=== PATIENT | female | born 1960 | race Caucasian/White ===

== ENCOUNTER → 2020-07-07 10:00 | Outpatient (BNVA) | payer MEDICARE, MEDICAID, SELFPAY | PROVIDERS: PCP Internal Medicine; Visit Provider Student in an Organized Health Care Education/Training Program | DX: Z76.89 Persons encountering health services in other specified circumstances (principal) | CPT/HCPCS: Q3014 ==

== ENCOUNTER → 2020-09-06 12:51 | Outpatient (BNVA) | payer MEDICARE, MEDICAID, SELFPAY | PROVIDERS: PCP Internal Medicine; Visit Provider Internal Medicine Gastroenterology | CPT/HCPCS: Q3014 ==

== ENCOUNTER 2022-05-30 16:29 | Outpatient (REF) | payer MEDICARE, MEDICAID, SELFPAY ==
--- NOTE | ~2022-05-30 | XR_ITS ---
EXAMINATION: XR RIBS, LEFT CLINICAL INFORMATION: Contusion COMPARISON: Previous chest and rib x-ray July 2019 TECHNIQUE: 3 views of the left ribs and one view of the chest were obtained. FINDINGS: The cardiac and mediastinal contours are stable. The there is biapical pleural thickening that is stable. There is minimal subsegmental atelectasis at the lung bases. The lungs are otherwise clear. No pleural effusion or pneumothorax. There are multiple old left anterior rib fractures. There is a left anterior 10th rib fracture that appears acute. Old T12 vertebral body compression fracture and vertebroplasty change unchanged. Old T6 and T7 vertebral body compression fractures unchanged. XR/XR ribs LT min 3V w CXR1V IMPRESSION: Acute left anterior 10th rib fracture. Multiple old left anterior rib fractures. No evidence for acute the chest.
== END 2022-05-30 16:30 | disposition home or self-care (01) ==
LOC: HO.HMGCX 16:29
PROVIDERS: PCP Internal Medicine; Visit Provider Internal Medicine
DX: S20.219A Contusion of unspecified front wall of thorax, initial encounter (principal); X58.XXXA Exposure to other specified factors, initial encounter; Y93.9 Activity, unspecified; Y92.9 Unspecified place or not applicable; Y99.9 Unspecified external cause status
CPT/HCPCS: 71101

== ENCOUNTER 2022-08-16 13:22 | Outpatient (AMB) | payer MEDICARE, MEDICAID, SELFPAY ==
--- NOTE | 2022-08-16 13:36 | MHC.PC.OV ---
Vital Signs 08/16/22 13:37 Height 5 ft 8 in Weight 155 lb BMI 23.6 BP 122/80 Blood Pressure Location Lt brachial Position Sitting Pulse 95 Pulse Source Pulse Oximeter Pulse Oximetry (%) 94 Oxygen Delivery Method Room Air Intake Visit Reasons: Painful Lumps on Arms Intake Note: Pt is here today c/o lumps on bilateral arms [id number] Allergies codeine [CODEINE] Allergy (Intermediate, Verified 02/01/24 08:54) HIVES, rash Sulfa (Sulfonamide Antibiotics) Allergy (Intermediate, Verified 02/01/24 08:54) RASH, anaphylaxis, anaphylaxis tramadol [Ultram] Allergy (Intermediate, Verified 02/01/24 08:54) trouble breathing Medication List - Last Reconciled 08/16/22 by Maki Foreman MD albuterol sulfate 90 mcg/actuation 2 puffs inhalation Q6H PRN amlodipine 5 mg PO QAM [id number]-lfwozdsjwdogw-dqqz 50-300-40 mg (Fioricet) 1 cap PO ONCE PRN 4 days calcium carbonate-vitamin D3 600 mg-10 mcg (400 unit) 2 tabs PO DAILY carisoprodol 350 mg PO PRN; take 1 tab po in am and 1/2 tablet po in pm clonazepam 1 mg PO BID duloxetine 60 mg PO DAILY fluticasone propionate 50 mcg/actuation 1 spray intranasal QAM meclizine 25 mg PO DAILY PRN metoprolol succinate ER 50 mg PO DAILY omeprazole 40 mg PO DAILY quetiapine 200 mg PO BEDTIME ropinirole 0.5 mg PO BEDTIME 30 days Tobacco use date assessed: 08/16/22 HPI Painful Lumps on Arms HPI Details 63-year-old lady here today complaining of appearance of lumps in both arms present now for the last 2 years, no history of trauma. She had a DEXA scan from December 2018 showing severe osteoporosis. She has been on Fosamax previously, unable to tolerate medication, seen by rheumatology in 2019 and prescribed Forteo. Patient however did not take it , as patient convinced herself she has Paget's disease despite repeated conversations with her stating that prior workup did not reveal any evidence of Paget's. She had a bone scan done in 2014 with no evidence of Paget's disease and her alkaline phosphatase levels have been normal since 2014. She ordered a repeat aCMP and alkaline phosphatase, and she was advised thattient that if her alk-phos is normal on these labs, she will need to start Forteo immediately as she is at high risk for fracture which can decrease both quality and quantity of her life span. Patient however has not followed up with her since. Ordered another bone density scan, to be done together with her screening mammogram. [facility] Medical History (Updated 02/01/24 @ 09:20 by Maki Foreman MD) Cigarette smoker motivated to quit Peripheral vascular disease Pain and swelling of lower extremity Hx of TIA (transient ischemic attack) and stroke Headache Dizziness of unknown cause Restless leg syndrome Distal radius fracture, left Elbow fracture, right Lung nodule seen on imaging study Impaired fasting glucose Osteoporosis Generalized anxiety disorder Primary insomnia Multiple rib fractures Lymphocytic colitis Tubular adenoma of colon Gastritis History of SIADH Hx of compression fracture of spine History of pelvic fracture Hepatitis C History of herpes genitalis Fibromyalgia Surgical History H/O esophagogastroduodenoscopy History of colonoscopy History of hysterectomy Ectopic Family History Father HTN (hypertension) Mother HTN (hypertension) Colitis Maternal Grandfather No problems noted. Maternal Grandmother HTN (hypertension) Paternal Grandfather No problems noted. Paternal Grandmother No problems noted. Sister Breast cancer Sister Bladder cancer Sister No problems noted. Sister No problems noted. Social History Household Members: Other Housing: Apartment Alcohol intake: current Alcohol intake frequency: does not drink Patient Tobacco Use Status: Current everyday Tobacco user Cigarettes Per Day: 12 e-Cigarette/Vaping Use: Never Used Second Hand Smoke Exposure: No service: No Current occupational status: disabled Current occupation: left hand dominant Cognitive needs: No Hearing needs: No Vision needs: Yes Questionnaire Thrive Questionnaire Date Thrive assessed: 12/22/21 AUDIT C Alcohol Use Questionnaire (AUDIT-C) 1. How often do you have a drink containing alcohol?: Never Total Score: 0 RYAN-7 AMB Questionnaire RYAN-7 Date RYAN - 7 assessed: 12/22/21 Source: Developed by Drs. Trent L. Татьяна Haas, Altaf Sethi and colleagues, with an educational devon from [employer]. Review of Systems Const Details: Denies fever(s) and Denies weakness ENT Reports no additional complaints Card Denies chest pain and Denies lightheadedness Resp Reports no additional complaints GI Denies abdominal pain, Denies change in bowel habits and Reports heartburn Musc Reports myalgias, Reports arthralgias and Reports stiffness Skin/Breast Reports as per HPI Neuro Denies focal weakness, Reports restless legs (Controlled on pramipexole) and Denies weakness Endo Reports no additional complaints Cain/Lymph Denies easy bleeding and Denies easy bruising Physical exam (Primary Care) Vital Signs: Last Vital Signs Pulse 95 08/16/22 13:37 BP 122/80 08/16/22 13:37 Pulse Ox 94 08/16/22 13:37 Oxygen Delivery Method Room Air 08/16/22 13:37 BMI result Body Mass Index 23.6 Tobacco/Smoking Status: Tobacco use Status Tobacco use date assessed 08/16/22 08/16/22 13:42 Patient Tobacco Use Status Current everyday Tobacco 08/16/22 13:42 e-Cigarette/Vaping Use Never Used 08/16/22 13:42 Thrive Assessment: Date of Thrive Assessment Date Thrive assessed 12/22/21 08/16/22 13:42 Const General: no acute distress and alert Orientation/consciousness: patient oriented x3 HENMT Face and sinus: Yes face symmetric Mouth: moist mucous membranes Eyes General: appearance normal, both eyes and all related structures Neck Neck: Yes full ROM, Yes no lymphadenopathy and Yes supple Chest Chest palpation & inspection: normal inspection of the chest Breast/axilla palpation: normal palpation of the breasts Resp Auscultation: clear to auscultation bilaterally Cardio Rate: regular rate Rhythm: regular rhythm Heart sounds: S1 normal heart sound present and S2 normal heart sound present GI Palpation (GI): Soft to palpation, nontender, no guarding and no masses Auscultation: normal bowel sounds General: Yes no CVA tenderness Back/Spine/Pelvis Back: no CVA tenderness and No back tenderness Skin Other: Nontender ill-defined nodular lesion on left forearm, no overlying erythema noted Neuro General: patient oriented x3, gait normal, moves all extremities, Normal light touch and pain sensation and no focal motor deficits Extrem General: Yes normal gait Assessment and Plan Assessment & Plan (1) Osteoporosis: Code(s): M81.0 - Age-related osteoporosis without current pathological fracture Plan: dexa scan ordered to be done together with screening mammogram (2) Skin lesion of right arm: Code(s): L98.9 - Disorder of the skin and subcutaneous tissue, unspecified Plan: Likely lipoma, currently asymptomatic, will observe (3) Breast cancer screening: Code(s): Z12.39 - Encounter for other screening for malignant neoplasm of breast Plan: Screening mammogram ordered Orders: Orders XR DEXA axial skeleton 08/16/22 M81.0 - Age-related osteoporosis without current pathological fracture MM screening mammo BI 08/16/22 Z12.31 - Encounter for screening mammogram for malignant neoplasm of breast Medications: New diclofenac sodium 1% (Arthritis Pain (diclofenac)) 2 grams topical QID PRN 100 grams 0RF painful elbow mass Coding Level of Care Code Est Pt Level 3 (93632) Diagnoses Osteoporosis M81.0 Skin lesion of right arm L98.9 Breast cancer screening Z12.39
[2022-08-16 13:37] VITALS: BP 122/80; PULSE 95; O2SAT 94; BMI 23.6
== END 2022-08-16 14:38 | disposition home or self-care (01) ==
LOC: HO.HMGC 13:22
PROVIDERS: PCP Internal Medicine; Visit Provider Internal Medicine
DX: M81.0 Age-related osteoporosis without current pathological fracture (principal); L98.9 Disorder of the skin and subcutaneous tissue, unspecified; Z12.39 Encounter for other screening for malignant neoplasm of breast
CPT/HCPCS: 99499

== ENCOUNTER 2022-09-29 16:24 | Outpatient (REF) | payer MEDICARE, MEDICAID, SELFPAY ==
--- NOTE | ~2022-09-29 | XR_ITS ---
EXAMINATION: X-RAY RIGHT SHOULDER X-RAY RIGHT HUMERUS X-RAY RIGHT ELBOW CLINICAL INFORMATION: Pain. COMPARISON: No recent pertinent prior studies are available for comparison. TECHNIQUE: 3 views of the right shoulder. 2 views of the right humerus. 3 views of the right elbow. FINDINGS: Right shoulder: No acute fractures or subluxation. Mild degenerative osteoarthritis of the acromioclavicular joint. Chronic appearing right-sided rib fractures with callus formation. No abnormal soft tissue calcifications. Right humerus: No acute fractures or subluxation. No abnormal soft tissue calcifications. Right elbow: No acute fractures or subluxation. Small enthesophytes along the surface of the olecranon process. No joint effusion. No unexpected radiopaque foreign bodies. XR/XR elbow RT min 3V IMPRESSION: 1. No acute fractures or subluxation. 2. Mild degenerative osteoarthritis of the acromioclavicular joint. 3. Chronic appearing right-sided rib fractures.
--- NOTE | ~2022-09-29 | XR_ITS ---
EXAMINATION: X-RAY RIGHT SHOULDER X-RAY RIGHT HUMERUS X-RAY RIGHT ELBOW CLINICAL INFORMATION: Pain. COMPARISON: No recent pertinent prior studies are available for comparison. TECHNIQUE: 3 views of the right shoulder. 2 views of the right humerus. 3 views of the right elbow. FINDINGS: Right shoulder: No acute fractures or subluxation. Mild degenerative osteoarthritis of the acromioclavicular joint. Chronic appearing right-sided rib fractures with callus formation. No abnormal soft tissue calcifications. Right humerus: No acute fractures or subluxation. No abnormal soft tissue calcifications. Right elbow: No acute fractures or subluxation. Small enthesophytes along the surface of the olecranon process. No joint effusion. No unexpected radiopaque foreign bodies. XR/XR humerus RT IMPRESSION: 1. No acute fractures or subluxation. 2. Mild degenerative osteoarthritis of the acromioclavicular joint. 3. Chronic appearing right-sided rib fractures.
--- NOTE | ~2022-09-29 | XR_ITS ---
EXAMINATION: X-RAY RIGHT SHOULDER X-RAY RIGHT HUMERUS X-RAY RIGHT ELBOW CLINICAL INFORMATION: Pain. COMPARISON: No recent pertinent prior studies are available for comparison. TECHNIQUE: 3 views of the right shoulder. 2 views of the right humerus. 3 views of the right elbow. FINDINGS: Right shoulder: No acute fractures or subluxation. Mild degenerative osteoarthritis of the acromioclavicular joint. Chronic appearing right-sided rib fractures with callus formation. No abnormal soft tissue calcifications. Right humerus: No acute fractures or subluxation. No abnormal soft tissue calcifications. Right elbow: No acute fractures or subluxation. Small enthesophytes along the surface of the olecranon process. No joint effusion. No unexpected radiopaque foreign bodies. XR/XR shoulder RT min 2V IMPRESSION: 1. No acute fractures or subluxation. 2. Mild degenerative osteoarthritis of the acromioclavicular joint. 3. Chronic appearing right-sided rib fractures.
== END 2022-09-29 16:25 | disposition home or self-care (01) ==
LOC: HO.HMGCX 16:24
PROVIDERS: PCP Internal Medicine; Visit Provider Nurse Practitioner Family
DX: M25.511 Pain in right shoulder (principal); M25.521 Pain in right elbow; W19.XXXA Unspecified fall, initial encounter
CPT/HCPCS: 73030; 73060; 73080

== ENCOUNTER → 2022-10-05 14:48 | Outpatient (BNVA) | payer MEDICARE, MEDICAID, SELFPAY | PROVIDERS: PCP Internal Medicine; Visit Provider Physician Assistant | DX: S42.401A Unspecified fracture of lower end of right humerus, initial encounter for closed fracture (principal); W18.41XA Slipping, tripping and stumbling without falling due to stepping on object, initial encounter; Y93.01 Activity, walking, marching and hiking; Y92.89 Other specified places as the place of occurrence of the external cause; Y99.8 Other external cause status | CPT/HCPCS: 99202 ==

== ENCOUNTER 2022-11-03 08:46 | Outpatient (REF) | payer MEDICARE, MEDICAID, SELFPAY | END 2022-11-03 08:47 | disposition home or self-care (01) | LOC: HO.HOSX 08:46 | PROVIDERS: Visit Provider Physician Assistant | DX: Z13.89 Encounter for screening for other disorder (principal) ==

== ENCOUNTER 2022-11-21 15:59 | Outpatient (REF) | payer MEDICARE, MEDICAID, SELFPAY ==
--- NOTE | ~2022-11-21 | XR_ITS ---
EXAMINATION: XR CHEST CLINICAL INFORMATION: Contusion front wall of thorax. COMPARISON: Previous chest x-ray and rib x-ray most recent May 2022 TECHNIQUE: 2 views of the chest were obtained. FINDINGS: The cardiac and mediastinal contours are stable. There is a question of a new 1 x 2 cm nodule in the right upper lobe overlying the medial right scapula and posterior sixth rib.. The lungs are otherwise clear. Biapical pleural thickening. No pleural effusion or pneumothorax. The bones are osteopenic. There is a T12 vertebral body compression fracture and post vertebroplasty or kyphoplasty change. There are multiple old-appearing compression fractures of the T6 and T7 and probably T4 vertebral bodies. There are old-appearing right rib posterior rib fractures. No acute rib fracture is seen by chest x-ray. No sternal fracture. XR/XR chest 2V IMPRESSION: Question 1 x 2 cm right upper lobe nodule. Follow-up chest CT recommended. Osteopenia and multiple thoracic compression fractures. Old-appearing right rib fractures. 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
== END 2022-11-21 16:00 | disposition home or self-care (01) ==
LOC: HO.HMGCX 15:59
PROVIDERS: PCP Internal Medicine; Visit Provider Internal Medicine
DX: S20.219A Contusion of unspecified front wall of thorax, initial encounter (principal)
CPT/HCPCS: 71046

== ENCOUNTER 2022-12-18 10:05 | Outpatient (REF) | payer MEDICARE, MEDICAID, SELFPAY ==
[2022-12-18 11:58] LABS: Blood Urea Nitrogen 7 mg/dL (9-16); Estimated Glomerular Filt Rate > 60
== END 2022-12-18 10:06 | disposition home or self-care (01) ==
LOC: HO.HMGCLDS 10:05
PROVIDERS: PCP Internal Medicine; Visit Provider Internal Medicine
DX: R91.1 Solitary pulmonary nodule (principal)
CPT/HCPCS: 36415; 82565; 84520

== ENCOUNTER 2023-03-01 10:35 | Outpatient (REF) | payer MEDICARE, MEDICAID, SELFPAY | END 2023-03-01 10:36 | disposition home or self-care (01) | LOC: HO.HOSX 10:35 | PROVIDERS: Visit Provider Physician Assistant | DX: Z13.89 Encounter for screening for other disorder (principal) ==

== ENCOUNTER 2023-03-12 05:37 | Outpatient (REF) | payer MEDICARE, MEDICAID, SELFPAY ==
--- NOTE | ~2023-03-12 | XR_ITS ---
EXAMINATION: XR WRIST, LEFT CLINICAL INFORMATION: Pain. COMPARISON: Left hand radiographs dated 06/21/2011. TECHNIQUE: PA, lateral, and oblique views of the left wrist. FINDINGS: There is bony demineralization. There are comminuted distal left radial and ulnar fracture fragments. These show volar angulation and displacement. There is some callus formation noted. There is moderate osteoarthritic change of the interphalangeal joint of the thumb. There is generalized soft tissue swelling of the wrist. No soft tissue gas or foreign body is seen. XR/XR wrist LT min 3V IMPRESSION: A displaced, comminuted and angulated Colles' fracture is noted of the left wrist. There is associated soft tissue swelling.
== END 2023-03-12 05:38 | disposition home or self-care (01) ==
LOC: HO.HOSX 05:37
PROVIDERS: Visit Provider Physician Assistant
DX: S52.502A Unspecified fracture of the lower end of left radius, initial encounter for closed fracture (principal)
CPT/HCPCS: 25600; 73110; 99202

== ENCOUNTER 2023-03-12 13:56 | Outpatient (AMB) | payer MEDICARE, MEDICAID, SELFPAY ==
--- NOTE | 2023-03-12 14:09 | A.OFFVIS_ITS ---
Intake Vital Signs 03/12/23 14:13 Height 5 ft 8 in Weight 153 lb BMI 23.3 Intake Visit Reasons: fc-left distal radius fracture Intake Note: Raul a 62 year old left hand dominant female who presents today for an ER follow up of left arm, DOI 02/15/23. Patient reports having a fall landing on an outstretched arm. She presented to [facility] ED on 02/17/23 due to her fingers turning black xrays where taken and was placed in a splint. Currently continues to have swelling with constant pain in wrist area as well as numbness and tingling in fingers. States not able to take Tylenol due to hep C and antiinflammatories causes BP to rise. Allergies codeine [CODEINE] Allergy (Intermediate, Verified 03/12/23 14:27) HIVES, rash Sulfa (Sulfonamide Antibiotics) Allergy (Intermediate, Verified 03/12/23 14:27) RASH, anaphylaxis, anaphylaxis tramadol [Ultram] Allergy (Intermediate, Verified 03/12/23 14:27) trouble breathing HPI fc-left distal radius fracture HPI Details 62-year-old left hand dominant female who presents to the office today for an injury she susatined to her left wrist on 02/15/23. She states she was initially seen at [facility] ER on 02/17/23 where x-rays were performed and she was found to have a distal radius and ulnar fracture which was reduced in their ED and she was placed in a splint. She states she retuned to their ED the following day with concerns her hand was turning black and she states nothing was done, they sent me home. She did have an appt to follow up in our office on Mar 07, which she No Showed. She states she did not have transportation and was unable to make a sooner appt than today. She c/o numbness and tingling in her fingers. She is unable to take Tylenol and anti-inflammatories due to her increasing BP issues and h/o Hep C. She has a history of smoking. She does not have a history of diabetes. She lives with a roommate. [facility] Medical History (Updated 03/12/23 @ 15:06 by Juan J James) Breast cancer screening Chest pain of unknown etiology Chronic headache Cigarette smoker motivated to quit Fibromyalgia Gastritis Generalized anxiety disorder Hepatitis C History of herpes genitalis History of pelvic fracture History of SIADH Hx of compression fracture of spine Impaired fasting glucose Lung nodule seen on imaging study Lymphocytic colitis Multiple rib fractures Nausea Nocturnal polyuria Odynophagia Osteoporosis Primary insomnia Skin lesion of right arm Tubular adenoma of colon Surgical History Ectopic H/O esophagogastroduodenoscopy History of colonoscopy History of hysterectomy Family History Father HTN (hypertension) Mother HTN (hypertension) Colitis Maternal Grandfather No problems noted. Maternal Grandmother HTN (hypertension) Paternal Grandfather No problems noted. Paternal Grandmother No problems noted. Sister Breast cancer Sister Bladder cancer Sister No problems noted. Sister No problems noted. Social History Household Members: Other Housing: Apartment Alcohol intake: current Alcohol intake frequency: does not drink Patient Tobacco Use Status: Current everyday Tobacco user e-Cigarette/Vaping Use: Never Used service: No Current occupational status: disabled Current occupation: left hand dominant Cognitive needs: No Hearing needs: No Vision needs: Yes Review of Systems Const All systems reviewed & are unremarkable except as noted in HPI and below Physical Exam Vital Signs: BMI result Body Mass Index 23.3 Extrem Other: Left wrist: Skin intact. There is some swelling over the distal radius with tenderness over the fracture site. There is no pain over the elbow, negative forearm squeeze test. She has full range of motion of the elbow. She can fully extend all digits and is unable to make a closed fist due to pain. She cannot flex the small finger-she states she had a fracture years ago that did not heal properly. I can passively bring her ring, middle and index finger down to a closed fist with significant guarding due to her pain. When I release my hand, she is unable to maintain a closed fist. She has significant hesitation to bring her thumb into opposition. Pulses are present and she is neurovascularly intact. Office Procedures Casting/Splints 61849-Gdmg/Wrist Cast Application Procedure code (CPT) selection complete Fracture Care Fracture Billing Code: Fracture Billing Code Results Reviewed Results Reviewed: Xrays were obtained in the office today and personally reviewed by me of the left wrist show comminuted and displaced distal radius and ulnar fracture Assessment & Plan Assessment & Plan (1) Distal radius fracture, left: Code(s): S52.502A - Unspecified fracture of the lower end of left radius, initial encounter for closed fracture Plan I was available to speak with Dr Lopez over the phone and reviewed images and discussed the case at length. I explained to the patient with the injury being almost 4 weeks old, there is likely some healing that has taken place which would make surgical intervention more difficult than if we had addressed this 3 weeks ago. The procedure would involve an osteotomy plus internal fixation and while she is a smoker, the risk of having poor bone and tissue healing is far greater than if she was a non smoker. At this time, is it important for her to obtained full ROM of her hand and fingers which is priority whether we pursue surgery or not. Without this, her overall outcome would be poor in her dominant hand. She was placed in a short arm cast. I worked on ROM with her in the office and encouraged her to work on this at home and put in a STAT referral to OT. She will return to see Dr Lopez in 2 weeks with cast off and xrays for re- evaluation to determine whether or not surgical intervention ( ie: osteotomy with ORIF) is an option given this is her dominant hand. She was advised against no lifting , pushing, pulling or carrying more than a cell phone. I also educated her on the risk factors of smoking and the effect that it can have on bone healing. I also explained to her with or without surgery, she may still develop some loss of motion in the wrist along with Carpal tunnel like symptoms. She does understand and will f/u as planned. Orders: Orders XR wrist LT min 3V Today M25.532 - Pain in left wrist OT Evaluation and Treatment Today S52.502A - Unspecified fracture of the lower end of left radius, initial encounter for closed fracture Patient Instructions: Scribed for Kyrie Valdez PA-C, by Juan J James medical science liaison, on 03/12/2023 at 1:45 PM DAVID. Kyrie Ochoa PA-C, have personally reviewed and agree with the information entered by the scribe. Coding Level of Care Code New Pt Level 4 (91900) Diagnoses Distal radius fracture, left S52.502A CPT Codes Casting - CPT: 95442-Beeo/Wrist Cast Application ([id number]) Fracture Care - Fracture Billing Code: Fracture Billing Code ([id number])
[2023-03-12 14:13] VITALS: BMI 23.3
== END 2023-03-12 15:20 | disposition home or self-care (01) ==
PROVIDERS: PCP Internal Medicine; Visit Provider Physician Assistant
DX: S52.502A Unspecified fracture of the lower end of left radius, initial encounter for closed fracture (principal); W19.XXXA Unspecified fall, initial encounter
CPT/HCPCS: 25600; 99204; 99214

== ENCOUNTER 2023-03-27 14:42 | Outpatient (AMB) | payer MEDICARE, MEDICAID, SELFPAY ==
[2023-03-27 15:12] VITALS: BMI 23.3
--- NOTE | 2023-03-27 15:12 | A.OFFVIS_ITS ---
Intake Vital Signs 03/27/23 15:12 Height 5 ft 8 in Weight 153 lb BMI 23.3 Intake Visit Reasons: ov-left distal radius fracture Intake Note: Raul 62 yr old female who is left hand dominant, presents today for her left distal radius fx from DOI 02/15/23. Patient reports having a fall landing on an outstretched arm. She presented to [facility] ED on 02/17/23 due to her fingers turning black xrays where taken and was placed in a splint. Last seen with Petra Paulson who placed patient in cast until patient is further evaluated today with Dr. Lopez. Cast removed in office and xrays updated. Allergies codeine [CODEINE] Allergy (Intermediate, Verified 03/27/23 15:34) HIVES, rash Sulfa (Sulfonamide Antibiotics) Allergy (Intermediate, Verified 03/27/23 15:34) RASH, anaphylaxis, anaphylaxis tramadol [Ultram] Allergy (Intermediate, Verified 03/27/23 15:34) trouble breathing HPI ov-left distal radius fracture HPI Details Raul Ramos is a 62-year-old left hand dominant woman who presents today to the office for a follow-up of left distal radius fracture. The patient reports having a fall landing on an outstretched arm and sustained injury to her left wrist. DOI: 02/15/23. She was presented to [facility] ED on 02/17/23 due to her fingers turning black , x-rays were taken and was placed in a splint. She reports that she originally had an appointment to be seen for this fracture, but her right canceled and she had to cancel her appointment. She was 1st seen in our clinic with Petra aPulson on 03/12/23. Khadijah showed me the x-rays in reviewed this patient with me. She was already more than 3 weeks post injury with some evidence of interval bony healing. We placed her in a short-arm cast and she is following up today with new radiographs. She says she still has pain in her wrist sometimes. She has a history of severe osteoporosis. She is not able to take Tylenol due to history of hepatitis C and anti- inflammatories causes BP to rise. She has a history of smoking. She does not have a history of diabetes. She lives with a roommate. She is working daily. PFSH Medical History (Updated 03/12/23 @ 15:06 by Juan J James) Lung nodule seen on imaging study Breast cancer screening Skin lesion of right arm Odynophagia Chest pain of unknown etiology Impaired fasting glucose Cigarette smoker motivated to quit Nausea Nocturnal polyuria Osteoporosis Generalized anxiety disorder Primary insomnia Multiple rib fractures Lymphocytic colitis Tubular adenoma of colon Gastritis History of SIADH Hx of compression fracture of spine History of pelvic fracture Hepatitis C History of herpes genitalis Fibromyalgia Chronic headache Surgical History Ectopic H/O esophagogastroduodenoscopy History of colonoscopy History of hysterectomy Family History Father HTN (hypertension) Mother HTN (hypertension) Colitis Maternal Grandfather No problems noted. Maternal Grandmother HTN (hypertension) Paternal Grandfather No problems noted. Paternal Grandmother No problems noted. Sister Breast cancer Sister Bladder cancer Sister No problems noted. Sister No problems noted. Social History Household Members: Other Housing: Apartment Alcohol intake: current Alcohol intake frequency: does not drink Patient Tobacco Use Status: Current everyday Tobacco user e-Cigarette/Vaping Use: Never Used service: No Current occupational status: disabled Current occupation: left hand dominant Cognitive needs: No Hearing needs: No Vision needs: Yes Review of Systems Const All systems reviewed & are unremarkable except as noted in HPI and below Physical Exam Vital Signs: BMI result Body Mass Index 23.3 Const General: cooperative, healthy appearing and no acute distress Orientation/consciousness: patient oriented x3 HEENT Head: Yes normocephalic and Yes atraumatic Eyes EOM: EOMs intact bilaterally Resp Effort & Inspection: normal respiratory effort and able to speak in complete sentences Cardio Jugular venous distension: no JVD Skin General skin exam: turgor normal, ecchymosis (No) and erythema (No) Rashes: no rashes Trauma: no lacerations or abrasions Neuro Other: Vascular: Cap refill brisk General: patient oriented x3 Extrem Other: Patient was alert oriented and in no acute distress. Her swelling is continuing to resolve. She does have a visible deformity in her wrist. She is not particularly tender to light palpation at the fracture site, but even medium palpation at the fracture site was somewhat painful to her. With encouragement she could bring her index middle and ring fingers to a fist and then back into full extension. She evidently has an old injury to the small finger and could not bring it to a fist before this recent injury. She does have some stiffness in the fingers in the thumb and I did show her some exercises to work on. She has full pronation and can only supinate about to neutral. I did show her some exercises to work on gentle supination. No lacerations or evidence of open injury. Radiographs three views of her left wrist again show her left distal radius and distal ulna fractures. The displaced part of the fracture appears to be extra- articular with loss of inclination and a small amount of radial translation. On the lateral and also appears that she had some volar translation. This appears to have been also a volar Emerson, but fortunately we did not see a lot of shortening and proximal migration. However, the carpus is situated over the distal radial articular surface but is sitting just anterior to the radial shaft. There is evidence of interval bony healing. Psych Appearance: grossly normal Affect: normal affect Attitude: cooperative Office Procedures Fracture Care Details: Fracture care [id number] if this was not already build last visit. decision making has been made by me. Fracture Billing Code: Fracture Billing Code Assessment & Plan Assessment & Plan (1) Distal radius fracture, left: Code(s): S52.502A - Unspecified fracture of the lower end of left radius, initial encounter for closed fracture Plan 1. Left distal radius fracture comminuted, intra-articular with displacement. DOI: 02/15/23. First seen in our clinic more than 3 weeks postop with interval bony healing. For this reason she was managed non operatively. She still has some mild tenderness at the fracture site. We discussed whether put her in a cast verses putting her in a Velcro wrist splint to wear like a cast except for showering. We are going to put her in a Velcro wrist splint to wear like a cast except for showering. I did talked about the importance of activity modification, and also avoiding activities prone to falling. She is going to work on gentle range of motion exercises for her fingers and on trying to improve some of her supination. The patient will follow up in 2-3 weeks with new radiographs three views out of her splint. At that time I hope to send her to OT hand therapy. Scribed for Dr. April Lopez by Kolby Odell, medical staff credentialing coordinator, on 03/27/2023. I, Dr. April Lopez, have personally reviewed and agree with the information entered by the scribe. Orders: Orders XR wrist LT min 3V Today M25.532 - Pain in left wrist Coding Level of Care Code Global (62009) Diagnoses Distal radius fracture, left S52.502A CPT Codes Fracture Care - Fracture Billing Code: Fracture Billing Code ([id number])
== END 2023-03-27 16:02 | disposition home or self-care (01) ==
PROVIDERS: PCP Internal Medicine; Visit Provider Orthopaedic Surgery
DX: S52.502A Unspecified fracture of the lower end of left radius, initial encounter for closed fracture (principal); W19.XXXA Unspecified fall, initial encounter
CPT/HCPCS: 99024

== ENCOUNTER 2023-03-27 14:42 | Outpatient (REF) | payer MEDICARE, MEDICAID, SELFPAY ==
--- NOTE | ~2023-03-27 | XR_ITS ---
EXAMINATION: XR WRIST, LEFT CLINICAL INFORMATION: Left wrist pain COMPARISON: 03/12/2023 TECHNIQUE: PA, lateral, and oblique views of the left wrist. FINDINGS: Comminuted intra-articular distal radial metaphyseal fracture again noted with unchanged alignment. Persistent impaction. The comminuted distal ulnar metaphyseal fracture including ulnar styloid fracture is also again noted with unchanged alignment. There is mild callus formation seen at both fracture sites. Fracture lines are not readily visible. The carpal rows are well aligned. The bones are osteopenic. Mild diffuse soft tissue swelling. XR/XR wrist LT min 3V IMPRESSION: 1. Comminuted intra-articular distal radial metaphyseal fracture with unchanged alignment. 2. Comminuted distal ulnar metaphyseal fracture including ulnar styloid fracture with unchanged alignment. 3. Early callus formation present.
== END 2023-03-27 14:43 | disposition home or self-care (01) ==
LOC: HO.HOSX 14:42
PROVIDERS: PCP Internal Medicine; Visit Provider Orthopaedic Surgery
DX: S52.502D Unspecified fracture of the lower end of left radius, subsequent encounter for closed fracture with routine healing (principal)
CPT/HCPCS: 73110

== ENCOUNTER 2023-04-11 14:27 | Outpatient (REF) | payer MEDICARE, MEDICAID, SELFPAY | END 2023-04-11 14:28 | disposition home or self-care (01) | LOC: HO.HOSX 14:27 | PROVIDERS: Visit Provider Orthopaedic Surgery | DX: Z13.89 Encounter for screening for other disorder (principal) ==

== ENCOUNTER 2023-05-02 15:13 | Outpatient (REF) | payer MEDICARE, MEDICAID, SELFPAY | END 2023-05-02 15:14 | disposition home or self-care (01) | LOC: HO.HOSX 15:13 | PROVIDERS: Visit Provider Orthopaedic Surgery | DX: Z13.89 Encounter for screening for other disorder (principal) ==

== ENCOUNTER 2023-05-07 13:20 | Outpatient (AMB) | payer MEDICARE, MEDICAID, SELFPAY ==
[2023-05-07 13:43] VITALS: BP 108/76; PULSE 67; O2SAT 99; BMI 22.1
--- NOTE | 2023-05-07 13:43 | A.OFFPC_ITS ---
Vital Signs 05/07/23 13:43 Height 5 ft 8 in Weight 145 lb 8 oz BMI 22.1 BP 108/76 Blood Pressure Location Lt brachial Position Sitting Pulse 67 Pulse Source Pulse Oximeter Pulse Oximetry (%) 99 Oxygen Delivery Method Room Air Intake Visit Reasons: ffup meds Intake Note: pt is here because her meclizine was stopped and the nurse told pt she can buy otc and pt is also wanting labs ordered pt wants flu vaccine today Allergies codeine [CODEINE] Allergy (Intermediate, Verified 05/09/23 19:24) HIVES, rash Sulfa (Sulfonamide Antibiotics) Allergy (Intermediate, Verified 05/09/23 19:24) RASH, anaphylaxis, anaphylaxis tramadol [Ultram] Allergy (Intermediate, Verified 05/09/23 19:24) trouble breathing Medication List - Last Reconciled 05/07/23 by Maki Foreman MD albuterol sulfate 90 mcg/actuation 2 puffs inhalation Q6H PRN amlodipine 5 mg PO QAM calcium carbonate-vitamin D3 600 mg-10 mcg (400 unit) 2 tabs PO DAILY carisoprodol 350 mg PO PRN; take 1 tab po in am and 1/2 tablet po in pm clonazepam 1 mg PO BID duloxetine 60 mg PO DAILY fluticasone propionate 50 mcg/actuation 1 spray intranasal QAM hydroxyzine HCl 10 mg PO BEDTIME meclizine 25 mg PO DAILY PRN metoprolol succinate ER 50 mg PO DAILY omeprazole 40 mg PO DAILY quetiapine 400 mg PO BEDTIME PRN ropinirole 2 mg PO BEDTIME ropinirole 1 mg PO BEDTIME Tobacco use date assessed: 05/07/23 Dental Screening Dental Screen Date: 05/07/23 Did you have a dental visit in the last 12 months?: No Did you have a dental problem in the last 6 months where you did not have access to dental care?: No Was dental information given to patient?: No HPI ffup meds HPI Details 62-year-old lady with generalized anxiet y disorder, primary insomnia, history of hepatitis-C, fibromyalgia, if his colitis and chronic GERD, impaired fasting glucose and osteoporosis with history of fractures in left distal radius and right elbow, here today for follow-up. She was being followed by Dr. Vazquez at [facility] [place] clinic, previously was on Fosamax but repeat bone density scan done in 2019 showed worse tahira osteoporosis. Patient was advised to start Forteo, but was not started as there was interruption in her care due to the pandemic. Has had broken several bone since then, and needs a referral to a new endocrine specialist or monorail operator for treatment of her osteoporosis. She currently is being seen by Psychiatry for her depression, currently on duloxetine and quetiapine Has restless leg syndrome, but increased her dose of ropinirole from 2-to 3 mg, as the previous dose was not helping anymore. Blood pressure stable controlled on amlodipine 5 mg taken once a day in t he morning and metoprolol 50 mg daily. Takes omeprazole 40 mg for heartburn symptoms. She has history of hepatitis C previously followed by Dr. Metz and was on ribavirin , but patient states she did not finish treatment. Has chronic insomnia, takes hydroxyzine, and on occasions that she cannot still sleep, takes meclizine which has been helping [facility] Medical History (Updated 05/14/23 @ 03:25 by Maki Foreman MD) Restless leg syndrome Distal radius fracture, left Elbow fracture, right Lung nodule seen on imaging study Impaired fasting glucose Osteoporosis Generalized anxiety disorder Primary insomnia Multiple rib fractures Lymphocytic colitis Tubular adenoma of colon Gastritis History of SIADH Hx of compression fracture of spine History of pelvic fracture Hepatitis C History of herpes genitalis Fibromyalgia Surgical History H/O esophagogastroduodenoscopy History of colonoscopy History of hysterectomy Ectopic Family History Father HTN (hypertension) Mother HTN (hypertension) Colitis Maternal Grandfather No problems noted. Maternal Grandmother HTN (hypertension) Paternal Grandfather No problems noted. Paternal Grandmother No problems noted. Sister Breast cancer Sister Bladder cancer Sister No problems noted. Sister No problems noted. Social History Household Members: Other Housing: Apartment Alcohol intake: current Alcohol intake frequency: does not drink Patient Tobacco Use Status: Current everyday Tobacco user Cigarettes Per Day: 12 e-Cigarette/Vaping Use: Never Used Second Hand Smoke Exposure: No service: No Current occupational status: disabled Current occupation: left hand dominant Cognitive needs: No Hearing needs: No Vision needs: Yes Questionnaire Thrive Questionnaire Date Thrive assessed: 12/22/21 RYAN-7 AMB Questionnaire RYAN-7 Date RYAN - 7 assessed: 12/22/21 Source: Developed by Drs. Trent Haas, Татьяна Cano, Altaf Sethi and colleagues, with an educational devon from [employer]. Review of Systems Const Details: Denies fever(s), Denies malaise, Denies weakness and Denies weight loss Eyes Denies change in vision ENT Reports no additional complaints, Reports dizziness (Occasional with sudden changes in position) and Denies disequilibrium Card Denies chest pain, Denies chest pain with activity, Denies syncope, Denies irreg ular heart rhythm and Denies lightheadedness Resp Reports no additional complaints GI Denies abdominal pain, Denies melena, Denies bloating, Denies hematochezia, Denies change in bowel habits and Reports heartburn Reports no additional complaints Musc Reports myalgias, Reports arthralgias and Reports stiffness Skin/Breast Denies change in pigmentation Neuro Reports dizziness (Occasional with sudden changes in position), Denies syncope, Denies focal weakness, Reports restless legs (Controlled on pramipexole), Denies disequilibrium and Denies weakness Psych Reports as per HPI Endo Reports no additional complaints Cain/Lymph Denies easy bleeding and Denies easy bruising Physical exam (Primary Care) Vital Signs: Last Vital Signs Pulse 67 05/07/23 13:43 BP 108/76 05/07/23 13:43 Pulse Ox 99 05/07/23 13:43 Oxygen Delivery Method Room Air 05/07/23 13:43 BMI result Body Mass Index 22.1 Tobacco/Smoking Status: Tobacco use Status Tobacco use date assessed 05/07/23 05/07/23 13:47 Patient Tobacco Use Status Current everyday Tobacco 05/07/23 13:45 e-Cigarette/Vaping Use Never Used 05/07/23 13:45 Thrive Assessment: Date of Thrive Assessment Date Thrive assessed 12/22/21 05/07/23 13:45 Const General: comfortable, no acute distress and alert Orientation/consciousness: patient oriented x3 HENMT Ears: hearing grossly normal bilaterally and external ears normal General nose exam: Normal external nose present and No nasal discharge present Face and sinus: Yes face symmetric Mouth: moist mucous membranes Neck Neck: Yes full ROM, Yes no lymphadenopathy and Yes supple Resp Auscultation: clear to auscultation bilaterally Cardio Rate: regular rate Rhythm: regular rhythm Heart sounds: S1 normal heart sound present and S2 normal heart sound present GI Palpation (GI): Soft to palpation, nontender, no guarding and no masses Auscultation: normal bowel sounds Back/Spine/Pelvis Thoracic/Lumbar Spine: paraspinal muscle tenderness bilaterally in the lower thoracic and in the upper lumbar Skin General skin exam: no rashes or lesions noted Neuro General: patient oriented x3, gait normal, moves all extremities, Normal light touch and pain sensation and no focal motor deficits Extrem General: Yes no joint enlargement, Yes no pedal edema and Yes normal gait Psych Appearance: grossly normal and well kempt Mental Status: mental status grossly normal Speech and movement: Normal speech and movement present Affect: normal affect Attitude: cooperative Office Procedures Flu Questionnaire Does the patient have a severe egg allergy?: No Does the patient have severe life threatening allergies?: No Does the patient have a fever or illness today?: No Has the patient ever had Guillain-Sanders Syndrome?: No Has the patient ever had any past reaction to a flu shot?: No Immunizations flu vacc [id number] 6mos up(PF) 60 mcg(15 mcgx4)/0.5 mL IM syringe Performing Provider: Maki Foreman MD [facility] Administered by: Deirdre Burkett CMA on 05/07/23 14:29 Dose Route Admin Location Dispensed Lot Number Expiration Date NDC Corsetier 0.5 mL IM Right Deltoid 0.5 mL [id number] 01/13/24 [id number] [employer] VIS Given Date VIS Provided VIS Publication Date 05/07/23 Single Vaccine 21 Eligibility Eligibility Date Funding Source Not [facility] Eligible 05/07/23 Private Assessment and Plan Assessment & Plan (1) HTN (hypertension): Code(s): I10 - Essential (primary) hypertension Qualifiers: Hypertension type: primary hypertension Qualified Code(s): I10 - Essential (primary) hypertension Plan: Blood pressure stable controlled on present treatment, Continue with current medication. Reinforced importance of following a low sodium diet, getting regular exercise, and lowering stress levels. (2) Gastro-esophageal reflux disease without esophagitis: Code(s): K21.9 - Gastro-esophageal reflux disease without esophagitis Plan: Currently on omeprazole 40 mg daily. Referred to gastroenterology clinic for further evaluation, needs an upper endoscopy (3) Generalized anxiety disorder: Code(s): F41.1 - Generalized anxiety disorder Plan: Patient states that her psychiatrist has left, will need a referral to a new psychiatrist and therapist. Referred to Ayanna Sorto for assistance in getting in to see new psych provider (4) Primary insomnia: Code(s): F51.01 - Primary insomnia Plan: Currently taking hydroxyzine 10 mg at bedtime , and sometimes would take an extra meclizine does which helps her sleep (5) Hepatitis C: Comment: unable to tolerate interferon and ribavirin treatment, currently followed by Dr. Metz HEPATITIS C AB POSITIVE CHRONIC -need viral load. Code(s): B19.20 - Unspecified viral hepatitis C without hepatic coma Qualifiers: Hepatic coma status: without hepatic coma Viral hepatitis chronicity: unspecified Qualified Code(s): B19.20 - Unspecified viral hepatitis C without hepatic coma Plan: Ordered the hepatitis C viral load, referred to GI Clinic for further evaluation and management (6) Fibromyalgia: Code(s): M79.7 - Fibromyalgia Plan: Previously was being followed by Rheumatology, currently on hydroxyzine HCL which has been helping and carisoprodol as needed for muscle spasms. (7) Osteoporosis: Code(s): M81.0 - Age-related osteoporosis without current pathological fracture Qualifiers: Osteoporosis type: age-related Presence of current pathological fracture: without current pathological fracture Qualified Code(s): M81.0 - Age- related osteoporosis without current pathological fracture Plan: She was previously being seen by Dr. Vazquez at [facility] [place] [place] rheumatology clinic, and was on Fosamax, with no improvement and was supposed to be switched to Forteo. However the pandemic hit and patient was unable to keep follow-up appointments and Dr. Vazquez has since left the practice. She also has sustained fractures in multiple sites since then. Will need to refer to Rheumatology for further evaluation management (8) Impaired fasting glucose: Code(s): R73.01 - Impaired fasting glucose Plan: Your fasting blood sugars elevated above 100 mg/dL. Impaired glucose metabolism O2 at risk for developing diabetes mellitus type 2, as well as heart attack and stroke later on. Lifestyle changes at just weight loss, healthy eating habits, and regular exercise are important, and can prevent the progression to diabetes (9) Colon cancer screening: Code(s): Z12.11 - Encounter for screening for malignant neoplasm of colon Plan: Gastroenterology referral ordered for colon cancer screening (10) Needs flu shot: Code(s): Z23 - Encounter for immunization Plan: Flu vaccine given today (11) Restless leg syndrome: Code(s): G25.81 - Restless legs syndrome Plan: Ropinirole Dose was increased to 3 mg at bedtime Orders: Orders Hepatitis C Viral Load 05/07/23 B19.20 - Unspecified viral hepatitis C without hepatic coma, F41.1 - Generalized anxiety disorder, F51.01 - Primary insomnia, I10 - Essential (primary) hypertension, K21.9 - Gastro-esophageal reflux disease without esophagitis, K52.832 - Lymphocytic colitis, M79.7 - Fibromyalgia, M81.0 - Age-related osteoporosis without current pathological fracture, R73.01 - Impaired fasting glucose Complete Blood Count Auto Diff 05/07/23 B19.20 - Unspecified viral hepatitis C without hepatic coma, F41.1 - Generalized anxiety disorder, F51.01 - Primary insomnia, I10 - Essential (primary) hypertension, K21.9 - Gastro-esophageal reflux disease without esophagitis, K52.832 - Lymphocytic colitis, M79.7 - Fibromyalgia, M81.0 - Age-related osteoporosis without current pathological fracture, R73.01 - Impaired fasting glucose IRON PROFILE 05/07/23 B19.20 - Unspecified viral hepatitis C without hepatic coma, F41.1 - Generalized anxiety disorder, F51.01 - Primary insomnia, I10 - Essential (primary) hypertension, K21.9 - Gastro-esophageal reflux disease without esophagitis, K52.832 - Lymphocytic colitis, M79.7 - Fibromyalgia, M81.0 - Age-related osteoporosis without current pathological fracture, R73.01 - Impaired fasting glucose Vitamin D 25-OH Total 05/07/23 B1.20 - Unspecified viral hepatitis C without hepatic coma, F41.1 - Generalized anxiety disorder, F51.01 - Primary insomnia, I10 - Essential (primary) hypertension, K21.9 - Gastro-esophageal reflux disease without esophagitis, K52.832 - Lymphocytic colitis, M79.7 - Fibromyalgia, M81.0 - Age-related osteoporosis without current pathological fracture, R73.01 - Impaired fasting glucose Vitamin B12 and Folate 05/07/23 B1.20 - Unspecified viral hepatitis C without hepatic coma, F41.1 - Generalized anxiety disorder, F51.01 - Primary insomnia, I10 - Essential (primary) hypertension, K21.9 - Gastro-esophageal reflux disease without esophagitis, K52.832 - Lymphocytic colitis, M79.7 - Fibromyalgia, M81.0 - Age-related osteoporosis without current pathological fracture, R73.01 - Impaired fasting glucose Magnesium 05/07/23 B1.20 - Unspecified viral hepatitis C without hepatic coma, F41.1 - Generalized anxiety disorder, F51.01 - Primary insomnia, I10 - Essential (primary) hypertension, K21.9 - Gastro-esophageal reflux disease without esophagitis, K52.832 - Lymphocytic colitis, M79.7 - Fibromyalgia, M81.0 - Age- related osteoporosis without current pathological fracture, R73.01 - Impaired fasting glucose Comprehensive Met. Panel 05/07/23.20 - Unspecified viral hepatitis C without hepatic coma, F41.1 - Generalized anxiety disorder, F51.01 - Primary insomnia, I10 - Essential (primary) hypertension, K21.9 - Gastro-esophageal reflux disease without esophagitis, K52.832 - Lymphocytic colitis, M79.7 - Fibromyalgia, M81.0 - Age-related osteoporosis without current pathological fracture, R73.01 - Impaired fasting glucose Lipid Panel 05/07/23. - Unspecified viral hepatitis C without hepatic coma, F41.1 - Generalized anxiety disorder, F51.01 - Primary insomnia, I10 - Essential (primary) hypertension, K21.9 - Gastro-esophageal reflux disease without esophagitis, K52.832 - Lymphocytic colitis, M79.7 - Fibromyalgia, M81.0 - Age-related osteoporosis without current pathological fracture, R73.01 - Impaired fasting glucose TSH reflex Free T4 05/07/23. - Unspecified viral hepatitis C without hepatic coma, F41.1 - Generalized anxiety disorder, F51.01 - Primary insomnia, I10 - Essential (primary) hypertension, K21.9 - Gastro-esophageal reflux disease without esophagitis, K52.832 - Lymphocytic colitis, M79.7 - Fibromyalgia, M81.0 - Age-related osteoporosis without current pathological fracture, R73.01 - Impaired fasting glucose Influenza [id number] Immunization 05/07/23 Z23 - Encounter for immunization Referrals Gastroenterology Referral B19.20 - Unspecified viral hepatitis C without hepatic coma, K21.9 - Gastro-esophageal reflux disease without esophagitis, Z12.11 - Encounter for screening for malignant neoplasm of colon Rheumatology Referral M79.7 - Fibromyalgia, M81.0 - Age-related osteoporosis without current pathological fracture Medications: New ropinirole administer 1-3 hours before bedtime 3 mg PO BEDTIME 90 tabs 1RF Refilled meclizine 25 mg PO DAILY PRN 30 tabs 0RF for dizziness Coding Level of Care Code Est Pt Level 4 (44642) Diagnoses Primary hypertension I10 Hypertension type: primary hypertension Gastro-esophageal reflux disease without esophagitis K21.9 Generalized anxiety disorder F41.1 Primary insomnia F51.01 Hepatitis C virus infection without hepatic coma, unspecified chronicity B19.20 Hepatic coma status: without hepatic coma Viral hepatitis chronicity: unspecified Fibromyalgia M79.7 Age-related osteoporosis without current pathological fracture M81.0 Osteoporosis type: age-related Presence of current pathological fracture: without current pathological fracture Impaired fasting glucose R73.01 Colon cancer screening Z12.11 Needs flu shot Z23 Restless leg syndrome G25.81
== END 2023-05-07 17:11 | disposition home or self-care (01) ==
PROVIDERS: PCP Internal Medicine; Visit Provider Internal Medicine
DX: Z23 Encounter for immunization (principal)
CPT/HCPCS: 90471; 90686; 99214

== ENCOUNTER 2023-05-07 14:35 | Outpatient (REF) | payer MEDICARE, MEDICAID, SELFPAY ==
[2023-05-07 16:32] LABS: MANUAL DIFF FLAG NO
[2023-05-07 16:55] LABS: Basophils Percent Auto 0.6 % (0-2); Eosinophils Percent Auto 0.3 % (0-4); Hematocrit 39.7 % (37.0-47.0); Hemoglobin 12.8 g/dl (12.0-16.0); Imm Gran Abs Auto 0.04 X10*3/uL (0.00-0.03); Imm Gran Pct Auto 0.6 % (0.0-0.4); Lymphocytes Absolute Auto 2.2 X10*3/uL (1.2-4.9); Lymphocytes Percent Auto 32.3 % (20-40); Mean Corpuscular HGB Conc 32.2 g/dl (31.0-35.0); Mean Corpuscular Hemoglobin 28.6 pg (27.0-33.0); Mean Corpuscular Volume 88.8 fL (80.0-98.0); Mean Platelet Volume 10.1 fL (9.4-12.3); Monocytes Absolute Auto 0.6 X10*3/uL (0.1-1.2); Monocytes Percent Auto 8.2 % (2-11); Platelet Count 328 X10*3/uL (160-400); Red Blood Count 4.47 X10*6/uL (4.20-5.50); Red Cell Distribution Width 14.3 % (11.0-16.0); White Blood Count 6.8 X10*3/uL (4.8-10.8)
[2023-05-07 16:59] LABS: Alanine Aminotransferase 29 U/L (0-31); Albumin Level 4.2 g/dL (3.5-5.0); Alkaline Phosphatase 76 U/L (39-117); Anion Gap 12 (12-20); Aspartate Amino Transferase 31 U/L (5-31); Bilirubin Total 0.4 mg/dL (0.0-1.0); Blood Urea Nitrogen 14 mg/dL (9-16); Calcium 9.5 mg/dL (8.4-10.2); Carbon Dioxide 24 mmol/L (22-29); Chloride 103 mmol/L (96-108); Estimated Glomerular Filt Rate > 60; Glucose Random 86 mg/dL (60-115); Iron 69 mcg/dL (30-160); Percent Iron Saturation 19 % (15-50); Potassium 4.6 mmol/L (3.3-5.1); Sodium 134 mmol/L (135-145); Total Iron Binding Capacity 362 mcg/dL (228-428); Total Protein 7.5 g/dL (6.5-8.0); Unsaturated Iron Binding 293 ug/dL
[2023-05-07 17:13] LABS: TSH reflex Free T4 1.09 uIU/mL (0.32-4.0); Vitamin D 25-OH Total 52.8 ng/mL (>30)
[2023-05-07 17:28] LABS: Folate 13.5 ng/mL (> or = 4.0); Vitamin B12 311 pg/mL (200-900)
[2023-05-08 15:48] LABS: HCV Log PCR 6.69 Log IU/mL (NOT DETECTED)
== END 2023-05-07 14:36 | disposition home or self-care (01) ==
LOC: HO.HMGCLDS 14:35
PROVIDERS: PCP Internal Medicine; Visit Provider Internal Medicine
DX: I10 Essential (primary) hypertension (principal); K52.832 Lymphocytic colitis; K21.9 Gastro-esophageal reflux disease without esophagitis; M81.0 Age-related osteoporosis without current pathological fracture; F41.1 Generalized anxiety disorder; F51.01 Primary insomnia; B19.20 Unspecified viral hepatitis C without hepatic coma; M79.7 Fibromyalgia; R73.01 Impaired fasting glucose
CPT/HCPCS: 36415; 80053; 82306; 82607; 82746; 83540; 83735; 84443; 85025; 87522

== ENCOUNTER 2023-05-09 12:59 | Outpatient (REF) | payer MEDICARE, MEDICAID, SELFPAY ==
--- NOTE | ~2023-05-09 | XR_ITS ---
EXAMINATION: XR WRIST, LEFT CLINICAL INFORMATION: Reason for Exam M25.532 - Pain in left wrist COMPARISON: Wrist radiographs 04/03/2023 TECHNIQUE: Three views of the wrist FINDINGS: Again seen is a comminuted, displaced impacted fracture of the distal radial metaphysis with volar angulation of the distal fracture fragment in unchanged alignment and a mildly displaced comminuted fracture of the distal ulnar metaphysis in unchanged alignment, which demonstrates some bridging callus formation Osteopenia. Mild osteoarthritis of the wrist unchanged. No soft tissue abnormality. XR/XR wrist LT min 3V IMPRESSION: Again seen is a comminuted, displaced impacted fracture of the distal radial metaphysis with volar angulation of the distal fracture fragment in unchanged alignment and a mildly displaced comminuted fracture of the distal ulnar metaphysis, which demonstrates some bridging callus formation.
== END 2023-05-09 13:00 | disposition home or self-care (01) ==
LOC: HO.HOSX 12:59
PROVIDERS: Visit Provider Physician Assistant
DX: S52.502D Unspecified fracture of the lower end of left radius, subsequent encounter for closed fracture with routine healing (principal); M25.532 Pain in left wrist; X58.XXXD Exposure to other specified factors, subsequent encounter
CPT/HCPCS: 73110

== ENCOUNTER 2023-05-09 14:22 | Outpatient (AMB) | payer MEDICARE, MEDICAID, SELFPAY ==
[2023-05-09 14:27] VITALS: BMI 22.0
--- NOTE | 2023-05-09 14:27 | A.OFFVIS_ITS ---
Intake Vital Signs 05/09/23 14:27 Height 5 ft 8 in Weight 145 lb BMI 22.0 Intake Visit Reasons: OV-left distal radius fx Intake Note: Raul a 62 year old female presents today for a follow up of left distal radius fx, DOI 02/15/23. Xrays updated in office. Patient reports no improvement, she continues to have pain and discomfort. States tingling in hand and forearm. She wears velcro wrist brace as instructed. Allergies codeine [CODEINE] Allergy (Intermediate, Verified 05/09/23 19:24) HIVES, rash Sulfa (Sulfonamide Antibiotics) Allergy (Intermediate, Verified 05/09/23 19:24) RASH, anaphylaxis, anaphylaxis tramadol [Ultram] Allergy (Intermediate, Verified 05/09/23 19:24) trouble breathing HPI OV-left distal radius fx HPI Details 62-year-old female who returns to the [facility] today for a follow-up of left distal radius fracture, 02/15/23. She continues to have pain and discomfort in her wrist and reports no improvement in her pain. She also c/o tingling in her hand and forearm. She is wearing the Velcro wrist brace as instructed. COUNT INCLUDES THE [facility] Medical History (Updated 05/10/23 @ 09:11 by Kyrie Valdez PA-C) Lung nodule seen on imaging study Breast cancer screening Skin lesion of right arm Odynophagia Chest pain of unknown etiology Impaired fasting glucose Cigarette smoker motivated to quit Nausea Nocturnal polyuria Osteoporosis Generalized anxiety disorder Primary insomnia Multiple rib fractures Lymphocytic colitis Tubular adenoma of colon Gastritis History of SIADH Hx of compression fracture of spine History of pelvic fracture Hepatitis C History of herpes genitalis Fibromyalgia Chronic headache Surgical History H/O esophagogastroduodenoscopy History of colonoscopy History of hysterectomy Ectopic Family History Father HTN (hypertension) Mother HTN (hypertension) Colitis Maternal Grandfather No problems noted. Maternal Grandmother HTN (hypertension) Paternal Grandfather No problems noted. Paternal Grandmother No problems noted. Sister Breast cancer Sister Bladder cancer Sister No problems noted. Sister No problems noted. Social History Household Members: Other Housing: Apartment Alcohol intake: current Alcohol intake frequency: does not drink Patient Tobacco Use Status: Current everyday Tobacco user Cigarettes Per Day: 12 e-Cigarette/Vaping Use: Never Used Second Hand Smoke Exposure: No service: No Current occupational status: disabled Current occupation: left hand dominant Cognitive needs: No Hearing needs: No Vision needs: Yes Review of Systems Const All systems reviewed & are unremarkable except as noted in HPI and below Physical Exam Vital Signs: BMI result Body Mass Index 22.0 Extrem Other: Left wrist: Normal to inspection. No swelling. She does have some tenderness over the radial styloid. She has limited wrist extension to about 5 degrees, flexion to 30 degrees. She can supinate to neutral. She can fully pronate. NVI. Results Reviewed Results Reviewed: Xrays were obtained in the office today and personally reviewed by me of the left wrist show comminuted and displaced distal radius and ulnar fracture with stable position from previous films Assessment & Plan Assessment & Plan (1) Distal radius fracture, left: Code(s): S52.502A - Unspecified fracture of the lower end of left radius, initial encounter for closed fracture Qualifiers: Encounter type: subsequent encounter Fracture type: closed Fracture morphology: other fracture Fracture healing: with routine healing Qualified Code(s): S52.592D - Other fractures of lower end of left radius, subsequent encounter for closed fracture with routine healing Plan I reviewed images with her today and explain that the fracture is stable and appears to be healing however there is going to be significant reduction in her functional ability in the left wrist given the amount of joint collapse and loss of inclination from her injury. She does understand this. I did put in an order for occupational therapy and explained that she needs to work on ROM and gentle strengthening. She should start to increase activity as tolerated but continue to use caution with any type of impact activities. I even encouraged her to use her splint if she is doing anything that she may risk injuring herself again as there may be some weak spots through the fracture line. She is content with this plan and would see me back in 8 weeks with new x-rays, sooner if needed. Orders: Orders XR wrist LT min 3V 04/11/23 M25.532 - Pain in left wrist April Lopez MD XR wrist LT min 3V 05/02/23 M25.532 - Pain in left wrist April Lopez MD XR wrist LT min 3V 05/09/23 M25.532 - Pain in left wrist Kyrie Valdez PA-C OT Evaluation and Treatment 05/09/23 S52.502A - Unspecified fracture of the lower end of left radius, initial encounter for closed fracture Kyrie Valdez PA-C Patient Instructions: Scribed for Kyrie Valdez PA-C, by Juan J James medical office supervisor, on 05/09/2023 at 2:30 PM EST. I, Kyrie Valdez PA-C, have personally reviewed and agree with the information entered by the scribe. Coding Level of Care Code Global (34813) Diagnoses Other closed fracture of distal end of left radius with routine healing, subsequent encounter S52.592D Encounter type: subsequent encounter Fracture type: closed Fracture morphology: other fracture Fracture healing: with routine healing
== END 2023-05-09 15:01 | disposition home or self-care (01) ==
PROVIDERS: PCP Internal Medicine; Visit Provider Physician Assistant
DX: S52.592D Other fractures of lower end of left radius, subsequent encounter for closed fracture with routine healing (principal)
CPT/HCPCS: 99024

== ENCOUNTER 2023-06-27 06:13 | Outpatient (REF) | payer MEDICARE, MEDICAID, SELFPAY | END 2023-06-27 06:14 | disposition home or self-care (01) | LOC: HO.HOSX 06:13 | PROVIDERS: Visit Provider Physician Assistant | DX: Z13.89 Encounter for screening for other disorder (principal) ==

== ENCOUNTER 2023-09-07 15:15 | Outpatient (REF) | payer MEDICARE, MEDICAID, SELFPAY ==
--- NOTE | ~2023-09-07 | US_ITS ---
EXAMINATION: US EXTRACRANIAL CAROTID DUPLEX, BILATERAL CLINICAL INFORMATION: Dizziness and giddiness COMPARISON: None available. TECHNIQUE: Real-time ultrasound and Doppler techniques (integrating B-mode 2-D vascular images, Doppler spectral analysis and color-flow Doppler imaging) were utilized to interrogate the extracranial carotid arteries, the vertebral arteries and proximal subclavian arteries bilaterally. The degree of stenosis is determined by criteria similar to NASCET. FINDINGS: Right Side: 1. There is mild atherosclerotic plaque seen in the bifurcation/proximal ICA region. 2. The common carotid artery PSV proximally is 97 cm/s and distally 92 cm/s. 3. The proximal internal carotid artery velocities are 79 cm/s systolic and 20 cm/s diastolic. 4. The proximal external carotid artery PSV is 101 cm/s. 5. The vertebral artery shows antegrade flow. 6. The subclavian artery waveforms are normal. Left Side: 1. There is mild atherosclerotic plaque seen in the bifurcation/proximal ICA region. 2. The common carotid artery PSV proximally is 140 cm/s and distally 88 cm/s. 3. The proximal internal carotid artery velocities are 63 cm/s systolic and 22 cm/s diastolic. 4. The proximal external carotid artery PSV is 88 cm/s. 5. The vertebral artery shows antegrade flow. 6. The subclavian artery waveforms are normal. US/US carotid duplex BI IMPRESSION: 1. RIGHT: Minimal, non-hemodynamically significant stenosis of the proximal right internal carotid artery corresponding to a 0-49% stenosis by velocity criteria. 2. LEFT: Minimal, non-hemodynamically significant stenosis of the proximal left internal carotid artery corresponding to a 0-49% stenosis by velocity criteria.
== END 2023-09-07 15:16 | disposition home or self-care (01) ==
LOC: HO.HMGCX 15:15
PROVIDERS: PCP Internal Medicine; Visit Provider Internal Medicine
DX: R42 Dizziness and giddiness (principal); I65.23 Occlusion and stenosis of bilateral carotid arteries
CPT/HCPCS: 93880

== ENCOUNTER 2023-09-19 11:13 | Outpatient (AMB) | payer MEDICARE, MEDICAID, SELFPAY ==
[2023-09-19 11:46] VITALS: BP 104/78; PULSE 85; O2SAT 96; BMI 22.3
--- NOTE | 2023-09-19 11:46 | A.OFFPC_ITS ---
Vital Signs 09/19/23 11:46 Height 5 ft 8 in Weight 146 lb 8 oz BMI 22.3 BP 104/78 Blood Pressure Location Lt brachial Position Sitting Pulse 85 Pulse Source Pulse Oximeter Pulse Oximetry (%) 96 Oxygen Delivery Method Room Air Intake Visit Reasons: Dizziness Intake Note: Pt is here today for dizziness and being off balance. Allergies codeine [CODEINE] Allergy (Intermediate, Verified 09/19/23 12:20) HIVES, rash Sulfa (Sulfonamide Antibiotics) Allergy (Intermediate, Verified 09/19/23 12:20) RASH, anaphylaxis, anaphylaxis tramadol [Ultram] Allergy (Intermediate, Verified 09/19/23 12:20) trouble breathing Medication List - Last Reconciled 09/19/23 by Maki Foreman MD albuterol sulfate 90 mcg/actuation 2 puffs inhalation Q6H PRN amlodipine 5 mg PO QAM calcium carbonate-vitamin D3 600 mg-10 mcg (400 unit) 2 tabs PO DAILY carisoprodol 350 mg PO PRN; take 1 tab po in am and 1/2 tablet po in pm duloxetine 60 mg PO DAILY fluticasone propionate 50 mcg/actuation 1 spray intranasal QAM meclizine 25 mg PO DAILY PRN metoprolol succinate ER 50 mg PO DAILY omeprazole 40 mg PO DAILY quetiapine 400 mg PO BEDTIME PRN ropinirole 4 mg PO BEDTIME Tobacco use date assessed: 09/19/23 Dental Screening Dental Screen Date: 09/19/23 Did you have a dental visit in the last 12 months?: No Did you have a dental problem in the last 6 months where you did not have access to dental care?: No Was dental information given to patient?: No HPI HPI Comments History of Present Illness Details 63-year-old lady here today complaining of recurrent episodes of dizziness and feeling unbalanced, which seems to be occurring on a daily basis now for the last several weeks. She also complains of feeling tired all the time and having generalized body aches. She has history of hepatitis-C previously was placed on interferon by Dr. Schaeffer, but was unable to complete treatment as she started having suicidal ideations while on the medication. She denies any abdominal pain but does complain of excessive bloating. Complains of restless leg, frequently awakening in the middle of the night, would like to see if she can get replace her ropinirole prescription to an extended release formulation Requesting also a refill on her carisoprodol, which she takes for recurrent muscle spasms, which has been an ongoing problem now for several years. Laboratory Tests 05/07/23 14:46 WBC 6.8 Hgb 12.8 Hct 39.7 Plt Count 328 Random Glucose 86 Vitamin B12 311 25-OH Vitamin D To jose r 52.8 Folate 13.5 TSH 1.09 Hep C Viral Load [id number] H Hep C Viral Load L og 6.69 H PFSH Medical History Dizziness of unknown cause Restless leg syndrome Distal radius fracture, left Elbow fracture, right Lung nodule seen on imaging study Impaired fasting glucose Osteoporosis Generalized anxiety disorder Primary insomnia Multiple rib fractures Lymphocytic colitis Tubular adenoma of colon Gastritis History of SIADH Hx of compression fracture of spine History of pelvic fracture Hepatitis C History of herpes genitalis Fibromyalgia Surgical History H/O esophagogastroduodenoscopy History of colonoscopy History of hysterectomy Ectopic Family History Father HTN (hypertension) Mother HTN (hypertension) Colitis Maternal Grandfather No problems noted. Maternal Grandmother HTN (hypertension) Paternal Grandfather No problems noted. Paternal Grandmother No problems noted. Sister Breast cancer Sister Bladder cancer Sister No problems noted. Sister No problems noted. Social History Household Members: Other Housing: Apartment Alcohol intake: current Alcohol intake frequency: does not drink Patient Tobacco Use Status: Current everyday Tobacco user Cigarettes Per Day: 12 e-Cigarette/Vaping Use: Never Used Second Hand Smoke Exposure: No service: No Current occupational status: disabled Current occupation: left hand dominant Cognitive needs: No Hearing needs: No Vision needs: Yes Questionnaire Thrive Questionnaire Date Thrive assessed: 12/22/21 RYAN-7 AMB Questionnaire RYAN-7 Date RYAN - 7 assessed: 12/22/21 Source: Developed by Drs. Trent Haas, Татьяна Cano, Altaf Sethi and colleagues, with an educational devon from [employer]. Review of Systems Const Details: Denies fever(s), Denies weakness and Denies weight loss Eyes Denies change in vision ENT Reports no additional complaints Card Denies chest pain, Denies chest pain with activity, Denies syncope, Denies irregular heart rhythm and Denies lightheadedness Resp Reports no additional complaints GI Denies abdominal pain, Denies melena, Denies hematochezia, Denies change in bowel habits and Reports heartburn Reports no additional complaints Musc Reports myalgias, Reports arthralgias and Reports stiffness Skin/Breast Denies change in pigmentation Neuro Denies syncope, Denies focal weakness, Reports restless legs (Controlled on pramipexole) and Denies weakness Psych Reports as per HPI Endo Reports no additional complaints Cain/Lymph Denies easy bleeding and Denies easy bruising Physical exam (Primary Care) Vital Signs: Last Vital Signs Pulse 85 09/19/23 11:46 BP 104/78 09/19/23 11:46 Pulse Ox 96 09/19/23 11:46 Oxygen Delivery Method Room Air 09/19/23 11:46 BMI result Body Mass Index 22.3 Tobacco/Smoking Status: Tobacco use Status Tobacco use date assessed 09/19/23 09/19/23 11:48 Patient Tobacco Use Status Current everyday Tobacco 09/19/23 11:48 e-Cigarette/Vaping Use Never Used 09/19/23 11:48 Thrive Assessment: Date of Thrive Assessment Date Thrive assessed 12/22/21 09/19/23 11:48 Const General: comfortable, no acute distress and alert Orientation/consciousness: patient oriented x3 HENMT Ears: external ears normal General nose exam: Normal external nose present and No nasal discharge present Face and sinus: Yes face symmetric Mouth: moist mucous membranes Eyes General: appearance normal, both eyes and all related structures Sclerae: sclerae normal Neck Neck: Yes full ROM, Yes no lymphadenopathy and Yes supple Resp Auscultation: clear to auscultation bilaterally Cardio Rate: regular rate Rhythm: regular rhythm Heart sounds: S1 normal heart sound present and S2 normal heart sound present GI Palpation (GI): Soft to palpation, nontender, no guarding and no masses Percussion: Yes tympanic to percussion Auscultation: normal bowel sounds Back/Spine/Pelvis Thoracic/Lumbar Spine: paraspinal muscle tenderness bilaterally in the lower thoracic and in the upper lumbar Skin General skin exam: no rashes or lesions noted Neuro General: patient oriented x3, gait normal, moves all extremities, Normal light touch and pain sensation and no focal motor deficits Extrem General: Yes no joint enlargement, Yes no pedal edema and Yes normal gait Assessment and Plan Assessment & Plan (1) Hepatitis C: Comment: unable to tolerate interferon and ribavirin treatment Code(s): B19.20 - Unspecified viral hepatitis C without hepatic coma Qualifiers: Viral hepatitis chronicity: unspecified Hepatic coma status: without hepatic coma Qualified Code(s): B19.20 - Unspecified viral hepatitis C without hepatic coma Plan: GI consult obtained, has an appointment scheduled already for 10/08/[address] Burks (2) Dizziness of unknown cause: Code(s): R42 - Dizziness and giddiness Plan: Reviewed recent labs, which showed normal CBC, electrolytes, thyroid levels, glucose levels, could be due to active hepatitis C infection (3) Restless leg syndrome: Code(s): G25.81 - Restless legs syndrome Plan: Trial of ropinirole extended release 4 mg per tablet to take 1 tablet at bedtime, discontinued immediate release ropinirole (4) Gassiness: Code(s): R14.0 - Abdominal distension (gaseous) Plan: Prescription sent for simethicone, to take as directed (5) Muscle spasm of back: Code(s): M62.830 - Muscle spasm of back Plan: Refill prescription sent for carisoprodol, discussed with patient that this could be a symptom of her active hepatitis-C infection Medications: New simethicone (Gas Relief (simethicone)) 125 mg PO TID-QID PRN 90 caps 0RF abdominal distention ropinirole ER 4 mg PO BEDTIME 30 tabs 0RF Refilled carisoprodol 350 mg PO PRN; take 1 tab po in am and 1/2 tablet po in pm 45 tabs 0RF muscle pain M79.7 - Fibromyalgia Discontinued ropinirole administer 1-3 hours before bedtime Discontinued Reason: Stopped on Transfer 4 mg PO BEDTIME 30 tabs 0RF Coding Level of Care Code Est Pt Level 4 (55453) Diagnoses Hepatitis C virus infection without hepatic coma, unspecified chronicity B19.20 Viral hepatitis chronicity: unspecified Hepatic coma status: without hepatic coma Dizziness of unknown cause R42 Restless leg syndrome G25.81 Gassiness R14.0 Muscle spasm of back M62.830
== END 2023-09-19 12:47 | disposition home or self-care (01) ==
PROVIDERS: PCP Internal Medicine; Visit Provider Internal Medicine
DX: B19.20 Unspecified viral hepatitis C without hepatic coma (principal); R42 Dizziness and giddiness; G25.81 Restless legs syndrome; R14.0 Abdominal distension (gaseous); M62.830 Muscle spasm of back
CPT/HCPCS: 99214

== ENCOUNTER 2023-10-15 14:43 | Outpatient (AMB) | payer MEDICARE, MEDICAID, SELFPAY ==
--- NOTE | 2023-10-15 14:55 | MHC.OFFVIS ---
Vital Signs 10/15/23 14:59 Height 5 ft 8 in Weight 146 lb BMI 22.2 BP 116/71 Blood Pressure Location Lt brachial Position Sitting Pulse 77 Intake Visit Reasons: Hep-C Intake Note: Raul presents in the office as a new patient for Hep C. CC: She states that she states when she saw her pcp 09/18/23 and she said there was pains where her liver was. she wants treatment and she states that she is going through too much. Director Life Required: No Allergies codeine [CODEINE] Allergy (Intermediate, Verified 10/15/23 14:59) HIVES, rash Sulfa (Sulfonamide Antibiotics) Allergy (Intermediate, Verified 10/15/23 14:59) RASH, anaphylaxis, anaphylaxis tramadol [Ultram] Allergy (Intermediate, Verified 10/15/23 14:59) trouble breathing HPI Comments Details: This is a 63y.o F with PMH of HTN, osteoporosis, TIA, RYAN, reported chronic HCV who is here to establish care for HCV care. Pt reports that first found out about HCV decades ago. Unsure mode contraction. REports getting tx with injectable therapy ? interferon but ws not able to tolerate it. Currently cont to report R and L sided abd pain. Also reports retrosternal burning and discomfort with occ difficulty swallowing han certain hard foods but never needed to seek medical attention for this. Taking omeprazole 40 (has known osteoporosis). Does not report abd distention, pruritus, unintentional weight loss. Last viral load noted. Genotype not available. No recent liver imaging in the past 2 years. Also carries diagnosis of lymphocytic colitis but reports not on any medications currently. Does not have chronic diarrhea. [facility] Medical History Hx of TIA (transient ischemic attack) and stroke Headache Dizziness of unknown cause Restless leg syndrome Distal radius fracture, left Elbow fracture, right Lung nodule seen on imaging study Impaired fasting glucose Osteoporosis Generalized anxiety disorder Primary insomnia Multiple rib fractures Lymphocytic colitis Tubular adenoma of colon Gastritis History of SIADH Hx of compression fracture of spine History of pelvic fracture Hepatitis C History of herpes genitalis Fibromyalgia Surgical History H/O esophagogastroduodenoscopy History of colonoscopy History of hysterectomy Ectopic Family History Father HTN (hypertension) Mother HTN (hypertension) Colitis Maternal Grandfather No problems noted. Maternal Grandmother HTN (hypertension) Paternal Grandfather No problems noted. Paternal Grandmother No problems noted. Sister Breast cancer Sister Bladder cancer Sister No problems noted. Sister No problems noted. Social History Household Members: Other Housing: Apartment Alcohol intake: current Alcohol intake frequency: does not drink Patient Tobacco Use Status: Current everyday Tobacco user Cigarettes Per Day: 12 e-Cigarette/Vaping Use: Never Used Second Hand Smoke Exposure: No service: No Current occupational status: disabled Current occupation: left hand dominant Cognitive needs: No Hearing needs: No Vision needs: Yes Review of Systems Const All systems reviewed & are unremarkable except as noted in HPI and below Physical Exam Vital Signs: Last Vital Signs Pulse 77 10/15/23 14:59 BP 116/71 10/15/23 14:59 BMI result Body Mass Index 22.2 NAD Nonicteric Abd soft, mild tenderness without guarding, nondistended No overt resp distress No GODWIN No palmar erythema, no asterixis Assessment & Plan Assessment & Plan (1) Hepatitis C: Comment: unable to tolerate interferon and ribavirin treatment Code(s): B19.20 - Unspecified viral hepatitis C without hepatic coma Category: Medical Qualifiers: Viral hepatitis chronicity: unspecified Hepatic coma status: without hepatic coma Qualified Code(s): B19.20 - Unspecified viral hepatitis C without hepatic coma (2) Gastro-esophageal reflux disease without esophagitis: Code(s): K21.9 - Gastro-esophageal reflux disease without esophagitis Category: Medical Plan #Chronic HCV: Will obtain basic work up including genotype, fibrosure and other hep serologies for vaccination status MELD labs ordered as well US Abd HIV to r/o concurrent infection #GERD Ok to cont omeprazole 40 for now however will check barium swallow and low threshold to de-escalate it if barium swallow neg han given reported osteoporosis Follow up 4 weeks Orders: Orders Complete Blood Count no Diff 10/15/23 B19.20 - Unspecified viral hepatitis C without hepatic coma Hepatitis A IgG 10/15/23 B19.20 - Unspecified viral hepatitis C without hepatic coma Hepatitis B Core Antibody 10/15/23 B19.20 - Unspecified viral hepatitis C without hepatic coma Hepatitis B Surface Antigen 10/15/23 B19.20 - Unspecified viral hepatitis C without hepatic coma Hepatitis C Genotype 10/15/23 B19.20 - Unspecified viral hepatitis C without hepatic coma Phosphatidylethanol, Blood 10/15/23 B19.20 - Unspecified viral hepatitis C without hepatic coma FL barium swallow 10/15/23 K21.9 - Gastro-esophageal reflux disease without esophagitis Comprehensive Met. Panel 10/15/23 B19.20 - Unspecified viral hepatitis C without hepatic coma Hepatitis B Surface Antibody 10/15/23 B19.20 - Unspecified viral hepatitis C without hepatic coma Prothrombin Time INR 10/15/23 B19.20 - Unspecified viral hepatitis C without hepatic coma Liver Fibrosis Pnl 10/15/23 B19.20 - Unspecified viral hepatitis C without hepatic coma US abdomen complete 10/15/23 B19.20 - Unspecified viral hepatitis C without hepatic coma HIV Ab/Ag 10/15/23 B19.20 - Unspecified viral hepatitis C without hepatic coma Coding Level of Care Code New Pt Level 4 (91345) Diagnoses Hepatitis C virus infection without hepatic coma, unspecified chronicity B19.20 Viral hepatitis chronicity: unspecified Hepatic coma status: without hepatic coma Gastro-esophageal reflux disease without esophagitis K21.9
[2023-10-15 14:59] VITALS: BP 116/71; PULSE 77; BMI 22.2
== END 2023-10-15 15:29 | disposition home or self-care (01) ==
PROVIDERS: PCP Internal Medicine; Visit Provider Internal Medicine
DX: B19.20 Unspecified viral hepatitis C without hepatic coma (principal); K21.9 Gastro-esophageal reflux disease without esophagitis
CPT/HCPCS: 99204

== ENCOUNTER → 2023-10-15 14:43 | Outpatient (BNVA) | payer MEDICARE, MEDICAID, SELFPAY | PROVIDERS: PCP Internal Medicine; Visit Provider Internal Medicine | DX: B19.20 Unspecified viral hepatitis C without hepatic coma (principal); K21.9 Gastro-esophageal reflux disease without esophagitis | CPT/HCPCS: 99202 ==

== ENCOUNTER 2023-10-19 19:36 | Outpatient (REF) | payer MEDICARE, MEDICAID, SELFPAY ==
--- NOTE | ~2023-10-19 | MR_ITS ---
EXAMINATION: MR BRAIN WITHOUT CONTRAST CLINICAL INFORMATION: Visual field deficit. COMPARISON: CT head from 04/02/2016. TECHNIQUE: MRI of the brain was obtained using routine sequences without contrast. FINDINGS: No focal restricted diffusion is demonstrated to suggest acute or subacute cerebral ischemia. No evidence of acute or chronic hemorrhagic products on heme-sensitive imaging. Scattered periventricular and deep white matter T2 FLAIR hyperintensities consistent with mild underlying microangiopathy. Proportional prominence of the ventricles and sulcal spaces without evidence of obstructive hydrocephalus. No abnormal mass effect. No midline shift. Normal appearance of the pituitary gland. Normal positioning of the cerebellar tonsils. Normal arterial and venous vascular flow voids are present. Normal, homogeneous marrow signal. Mild mucosal thickening of the paranasal sinuses. Moderate leftward nasal septal deviation. No signal abnormalities within the mastoids. Changes of prior plate and screw fixation of the left mandibular condyle. No demonstrated abnormalities of the orbits on limited evaluation. MR/MR head/brain wo con IMPRESSION: 1. No acute intracranial abnormalities. 2. Mild underlying microangiopathy and generalized cerebral volume loss.
== END 2023-10-19 19:37 | disposition home or self-care (01) ==
LOC: HO.MRI 19:36
PROVIDERS: PCP Internal Medicine; Visit Provider Internal Medicine
DX: H53.40 Unspecified visual field defects (principal); R42 Dizziness and giddiness; R51.9 Headache, unspecified; Z86.73 Personal history of transient ischemic attack (TIA), and cerebral infarction without residual deficits
CPT/HCPCS: 70551

== ENCOUNTER 2023-11-09 14:00 | Outpatient (REF) | payer MEDICARE, MEDICAID, SELFPAY ==
--- NOTE | ~2023-11-09 | US_ITS ---
EXAMINATION: US ABDOMEN COMPLETE CLINICAL INFORMATION: Unspecified viral hepatitis C without hepatic coma. COMPARISON: Abdomen ultrasound 05/22/2017. CT abdomen and pelvis 07/11/2017. KUB 03/11/2015. TECHNIQUE: Real-time imaging of the abdominal viscera. Limited visualization due to bowel gas. FINDINGS: PANCREAS: Limited visualization of pancreatic tail and head. Imaged portion of pancreatic body is unremarkable. ABDOMINAL AORTA: Limited visualization. Imaged portions of the abdominal aorta are unremarkable. INFERIOR VENA CAVA: Visualized portions are normal. LIVER: Increased hepatic parenchymal heterogeneity and echogenicity could be associated with hepatocellular disease/hepatic steatosis and substantially limits visualization. Correlation with liver function tests and clinical exam recommended to determine further management. The liver is normal in size. The liver contour is normal. GALLBLADDER: No gallstones. No gallbladder wall thickening. COMMON BILE DUCT: Measures 0.7 cm in diameter. RIGHT KIDNEY: No hydronephrosis or renal calculi. Right renal lower pole 1.0 cm pole cyst with benign features. There is no indication for follow up imaging. The kidney measures 9.4 cm in maximum dimension. LEFT KIDNEY: No hydronephrosis. No renal calculi. Limited visualization. . The kidney measures 10.3 cm in maximum dimension. SPLEEN: Normal. The spleen measures 8.7 cm in maximum dimension. FREE FLUID: None. US/US abdomen complete IMPRESSION: Increased hepatic parenchymal heterogeneity and echogenicity could be associated with hepatocellular disease/hepatic steatosis and substantially limits visualization. Correlation with liver function tests and clinical exam recommended to determine further management.
[2023-11-09 16:20] LABS: Hematocrit 35.4 % (37.0-47.0); Hemoglobin 11.7 g/dl (12.0-16.0); Mean Corpuscular HGB Conc 33.1 g/dl (31.0-35.0); Mean Corpuscular Hemoglobin 29.3 pg (27.0-33.0); Mean Corpuscular Volume 88.7 fL (80.0-98.0); Mean Platelet Volume 9.8 fL (9.4-12.3); Platelet Count 290 X10*3/uL (160-400); Red Blood Count 3.99 X10*6/uL (4.20-5.50); Red Cell Distribution Width 13.9 % (11.0-16.0); White Blood Count 6.4 X10*3/uL (4.8-10.8)
[2023-11-09 16:28] LABS: Prothrombin Time 11.7 SEC (11.1-13.3)
[2023-11-09 16:48] LABS: Alanine Aminotransferase 36 U/L (0-31); Alkaline Phosphatase 70 U/L (39-117); Anion Gap 14 (12-20); Aspartate Amino Transferase 34 U/L (5-31); Bilirubin Total 0.4 mg/dL (0.0-1.0); Blood Urea Nitrogen 7 mg/dL (9-16); Calcium 9.2 mg/dL (8.4-10.2); Carbon Dioxide 20 mmol/L (22-29); Chloride 102 mmol/L (96-108); Estimated Glomerular Filt Rate > 60; Glucose Random 109 mg/dL (60-115); Potassium 3.7 mmol/L (3.3-5.1); Sodium 132 mmol/L (135-145); Total Protein 7.4 g/dL (6.5-8.0)
[2023-11-10 04:28] LABS: HBS Num1 0.36 mIU/mL (0-7.99); HBc Num1 0.11 S/CO (0.00-0.79); HBsAGNum1 0.33 S/CO (0.00-0.99); HIV AB/AG Nonreactive (Nonreactive); HIV Num 1 0.04 S/CO (0.00-0.99); Hepatitis B Core Antibody Nonreactive (Nonreactive); Hepatitis B Surface Antigen Negative (Negative); ~Hepatitis B Surface Antibody NONREACTIVE (Nonreactive)
[2023-11-10 04:29] LABS: Hepatitis A Antibody IgG REACTIVE (Nonreactive); ~Hepatitis A Antibody IgG 3.59 S/CO (0.00-0.99)
[2023-11-15 08:29] LABS: Hepatitis C Genotype 1a
[2023-11-26 11:06] LABS: FIB-ALT 28; FIB-Apolipoprotein A1 197; FIB-GGT 33; FIB-Haptoglobin 126; FIB-Total Bilirubin 0.4; Nec Inflam Act Grade A0; Nec Inflam Act Score 0.14
[2023-11-26 11:07] LABS: Liver Fibrosis Score 0.35; Liver Fibrosis Stage F1-F2
== END 2023-11-09 14:01 | disposition home or self-care (01) ==
LOC: HO.HMGCX 14:00
PROVIDERS: PCP Internal Medicine; Visit Provider Internal Medicine
DX: Z11.4 Encounter for screening for human immunodeficiency virus [HIV] (principal); B19.20 Unspecified viral hepatitis C without hepatic coma
CPT/HCPCS: 36415; 76700; 80053; 80321; 81596; 85027; 85610; 86704; 86706; 86708; 87340; 87389; 87902

== ENCOUNTER 2023-12-03 08:48 | Outpatient (AMB) | payer MEDICARE, MEDICAID, SELFPAY ==
--- NOTE | 2023-12-03 08:49 | MHC.OFFVIS ---
Intake Visit Reasons: missed appointment 11/20 r/s Intake Note: Raul presents as a telehealth today follow up. CC: She is looking up Hep C treatment and the treatment ineracts with medications that she is on now - she would like to discuss this. She verified through pharmacy. Allergies codeine [CODEINE] Allergy (Intermediate, Verified 12/03/23 08:49) HIVES, rash Sulfa (Sulfonamide Antibiotics) Allergy (Intermediate, Verified 12/03/23 08:49) RASH, anaphylaxis, anaphylaxis tramadol [Ultram] Allergy (Intermediate, Verified 12/03/23 08:49) trouble breathing HPI Comments Details: This is a 63y.o F with PMH of HTN, osteoporosis, TIA, RYAN, reported chronic HCV who is here to establish care for HCV care. 10/15/23: Pt reports that first found out about HCV decades ago. Unsure mode contraction. REports getting tx with injectable therapy ? interferon but ws not able to tolerate it. Currently cont to report R and L sided abd pain. Also reports retrosternal burning and discomfort with occ difficulty swallowing han certain hard foods but never needed to seek medical attention for this. Taking omeprazole 40 (has known osteoporosis). Does not report abd distention, pruritus, unintentional weight loss. Last viral load noted. Genotype not available. No recent liver imaging in the past 2 years. Also carries diagnosis of lymphocytic colitis but reports not on any medications currently. Does not have chronic diarrhea. 12/03/23: Here for televisit follow up. Labs reviewed consistent with genotype 1a, F1-2 fibrosis on fibrosure. No coinfecton with HBV or HIV. US Abd without any lesions. Barium swallow for GERD pending. [facility] Medical History Hx of TIA (transient ischemic attack) and stroke Headache Dizziness of unknown cause Restless leg syndrome Distal radius fracture, left Elbow fracture, right Lung nodule seen on imaging study Impaired fasting glucose Osteoporosis Generalized anxiety disorder Primary insomnia Multiple rib fractures Lymphocytic colitis Tubular adenoma of colon Gastritis History of SIADH Hx of compression fracture of spine History of pelvic fracture Hepatitis C History of herpes genitalis Fibromyalgia Surgical History H/O esophagogastroduodenoscopy History of colonoscopy History of hysterectomy Ectopic Family History Father HTN (hypertension) Mother HTN (hypertension) Colitis Maternal Grandfather No problems noted. Maternal Grandmother HTN (hypertension) Paternal Grandfather No problems noted. Paternal Grandmother No problems noted. Sister Breast cancer Sister Bladder cancer Sister No problems noted. Sister No problems noted. Social History Household Members: Other Housing: Apartment Alcohol intake: current Alcohol intake frequency: does not drink Patient Tobacco Use Status: Current everyday Tobacco user Cigarettes Per Day: 12 e-Cigarette/Vaping Use: Never Used Second Hand Smoke Exposure: No service: No Current occupational status: disabled Current occupation: left hand dominant Cognitive needs: No Hearing needs: No Vision needs: Yes Review of Systems Const All systems reviewed & are unremarkable except as noted in HPI and below Physical Exam Vital Signs: telehealth visit Telehealth Telehealth Telehealth Platform: [employer] Location of provider rendering services: practice address Location of patient: address on file Patient Identification confirmed using: Name, : Yes Telehealth method: voice only Patient verbally consented to treatment: Yes Patient verbally consented to billing insurance company: Yes Patient informed of any privacy concerns related to visit: Yes Results Reviewed Results Reviewed: Laboratory Tests 05/07/23 11/09/23 14:46 14:30 Hgb 11.7 L Hct 35.4 L Plt Count 290 INR 1.0 Sodium 132 L Potassium 3.7 Chloride 102 Carbon Dioxide 20 L Anion Gap 14 BUN 7 L Creatinine 0.75 Total Bilirubin 0.4 AST 34 H ALT 36 H Alkaline Phosphatase 70 Liver Fibrosis Stage F1-F2 Necroinflammator Grade A0 Albumin 4.0 PEth 16:0/18.1 (POPEth) 172 (H) PEth 16:0/18.2 (PLPEth) 132 (H) Hepatitis A IgG Ab REACTIVE Hep Bs Antigen Negative Hep Bs Antibody NONREACTIVE Hep B Core Total Ab Nonreactive Hep C Viral Load [id number] H Hep C Viral Load Log 6.69 H Hepatitis C Genotype 1a HIV 1&2 Ab/P24 Ag 4thGn Nonreactive Assessment & Plan Assessment & Plan (1) Hepatitis C: Code(s): B19.20 - Unspecified viral hepatitis C without hepatic coma Category: Medical Qualifiers: Viral hepatitis chronicity: unspecified Hepatic coma status: without hepatic coma Qualified Code(s): B19.20 - Unspecified viral hepatitis C without hepatic coma (2) Gastro-esophageal reflux disease without esophagitis: Code(s): K21.9 - Gastro-esophageal reflux disease without esophagitis Category: Medical Plan #Chronic HCV: Will start Epclusa x 12 weeks for 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 No co-infection with HBV or HIV per labs checked last month. Will need LFTs and viral load at completion of tx and then again to document SVR 12. #GERD Ok to cont omeprazole 40 for now however will check barium swallow and low threshold to de-escalate it if barium swallow neg han given reported osteoporosis Follow up 4 months Medications: New sofosbuvir-velpatasvir 400-100 mg (Epclusa) 1 tab PO DAILY 12 weeks 84 tabs 0RF Coding Level of Care Code Tele Est Pt Level 4 (63086) Diagnoses Hepatitis C virus infection without hepatic coma, unspecified chronicity B19.20 Viral hepatitis chronicity: unspecified Hepatic coma status: without hepatic coma Gastro-esophageal reflux disease without esophagitis K21.9
== END 2023-12-03 10:51 | disposition home or self-care (01) ==
LOC: HO.HGI 08:48
PROVIDERS: PCP Internal Medicine; Visit Provider Internal Medicine
DX: B19.20 Unspecified viral hepatitis C without hepatic coma (principal); K21.9 Gastro-esophageal reflux disease without esophagitis
CPT/HCPCS: 99442

== ENCOUNTER → 2023-12-03 08:48 | Outpatient (BNVA) | payer MEDICARE, MEDICAID, SELFPAY | PROVIDERS: PCP Internal Medicine; Visit Provider Internal Medicine ==

== ENCOUNTER 2024-01-14 11:13 | Outpatient (AMB) | payer MEDICARE, MEDICAID, SELFPAY ==
--- NOTE | 2024-01-14 11:50 | MHC.OFFWIV ---
Intake Vital Signs 01/14/24 11:51 Height 5 ft 8 in Weight 148 lb 2 oz BMI 22.5 BP 118/70 Blood Pressure Location Rt brachial Position Sitting Pulse 83 Pulse Source Pulse Oximeter Temp 97.9 F Temp Source Oral Pulse Oximetry (%) 98 Intake Visit Reasons: EP LT ear wax removal [id number] Patient Tobacco Use Status: Current everyday Tobacco user Allergies codeine [CODEINE] Allergy (Intermediate, Verified 01/14/24 11:50) HIVES, rash Sulfa (Sulfonamide Antibiotics) Allergy (Intermediate, Verified 01/14/24 11:50) RASH, anaphylaxis, anaphylaxis tramadol [Ultram] Allergy (Intermediate, Verified 01/14/24 11:50) trouble breathing Medication List - Last Reconciled 01/14/24 by Yasemin Eastman NP albuterol sulfate 90 mcg/actuation 2 puffs inhalation Q6H PRN amlodipine 5 mg PO QAM calcium carbonate-vitamin D3 600 mg-10 mcg (400 unit) 2 tabs PO DAILY carisoprodol 350 mg PO PRN; take 1 tab po in am and 1/2 tablet po in pm clonazepam mg PO duloxetine 60 mg PO DAILY fluticasone propionate 50 mcg/actuation 1 spray intranasal QAM meclizine 25 mg PO DAILY PRN metoprolol succinate ER 50 mg PO DAILY omeprazole 40 mg PO DAILY quetiapine 200 mg PO BEDTIME ropinirole 4 mg PO BEDTIME sofosbuvir-velpatasvir 400-100 mg (Epclusa) 1 tab PO DAILY 12 weeks Do you need a note to return to daycare/school/sports/work: No HPI EP LT ear wax removal [id number] HPI Details This note is constructed using voice recognition software. While every effort has been made to ensure accuracy, circular knife machine cutter errors may have been included. 63-year-old female presents today with complaints of left-sided cerumen action. Patient reports this has been an issue for the past 1 week. Wears ear buds frequently for work, feels it may have contributed. No history of issue with ears including surgery, pain, or other difficulties. Experiencing some loss of hearing from the issue, having some mild pain in the left ear, with pressure. No fever, cough, chills, or dyspnea. [facility] Medical History Hx of TIA (transient ischemic attack) and stroke Headache Dizziness of unknown cause Restless leg syndrome Distal radius fracture, left Elbow fracture, right Lung nodule seen on imaging study Impaired fasting glucose Osteoporosis Generalized anxiety disorder Primary insomnia Multiple rib fractures Lymphocytic colitis Tubular adenoma of colon Gastritis History of SIADH Hx of compression fracture of spine History of pelvic fracture Hepatitis C History of herpes genitalis Fibromyalgia Surgical History H/O esophagogastroduodenoscopy History of colonoscopy History of hysterectomy Ectopic Family History Father HTN (hypertension) Mother HTN (hypertension) Colitis Maternal Grandfather No problems noted. Maternal Grandmother HTN (hypertension) Paternal Grandfather No problems noted. Paternal Grandmother No problems noted. Sister Breast cancer Sister Bladder cancer Sister No problems noted. Sister No problems noted. Social History Household Members: Other Housing: Apartment Alcohol intake: current Alcohol intake frequency: does not drink Patient Tobacco Use Status: Current everyday Tobacco user Cigarettes Per Day: 12 e-Cigarette/Vaping Use: Never Used Second Hand Smoke Exposure: No service: No Current occupational status: disabled Current occupation: left hand dominant Cognitive needs: No Hearing needs: No Vision needs: Yes Review of Systems Const All systems reviewed & are unremarkable except as noted in HPI and below ENT Reports as per HPI and Denies Normal hearing present (Mild reduction in hearing) Resp Reports no additional complaints Neuro Denies Normal hearing present (Mild reduction in hearing) Physical Exam Vital Signs: Last Vital Signs Temp 97.9 F 01/14/24 11:51 Pulse 83 01/14/24 11:51 BP 118/70 01/14/24 11:51 Pulse Ox 98 01/14/24 11:51 BMI result Body Mass Index 22.5 Const General: cooperative, healthy appearing, no acute distress, well developed and alert Limitations: no limitations HEENT Other: TMs obstructed bilaterally by cerumen. Hearing normal spoken voice. Head: Yes normal to inspection and Yes normocephalic Ears: external ears normal, TM's normal bilaterally (Visualized after ear irrigation completed.) and no periauricular adenopathy General nose exam: Normal external nose present Face and sinus: Yes normal facial exam, Yes sinuses nontender and Yes face symmetric Mouth: Normal oral and palatal mucosa present, tongue normal, oropharynx normal and moist mucous membranes Eyes General: appearance normal, both eyes and all related structures Neck Neck: Yes normal visual inspection, Yes no lymphadenopathy, Yes trachea midline and Yes supple Neuro Cranial nerves: No Normal hearing present (Mild reduction in hearing) Office Procedures Cerumen Removal From which ear canal was the cerumen removed: bilateral Removal: irrigation Notes: patient tolerated procedure well, no complications and ear canal clear [id number] Irrigation/Lavage Assessment & Plan Assessment & Plan (1) Impacted cerumen of both ears: Code(s): H61.23 - Impacted cerumen, bilateral Plan: In office irrigation successfully remove cerumen impacted in bilateral ears. Advise consideration of use of [id number]-[id number] Debrox or similar cerumen softening agent for any additional feelings of impaction. Follow with PCP as needed. (2) Hearing loss due to cerumen impaction: Code(s): H61.20 - Impacted cerumen, unspecified ear Qualifiers: Laterality: bilateral Qualified Code(s): H61.23 - Impacted cerumen, bilateral Plan: Hearing improved after cerumen removal by irrigation. Plan See above. Orders: Orders AMB Cerumen Removal Today H61.20 - Impacted cerumen, unspecified ear, H61.23 - Impacted cerumen, bilateral Coding Level of Care Code New Pt Level 3 (21606) Diagnoses Impacted cerumen of both ears H61.23 Hearing loss of both ears due to cerumen impaction H61.23 Laterality: bilateral CPT Codes Office Procedure - CPT: [id number] Irrigation/Lavage ([id number])
[2024-01-14 11:51] VITALS: BP 118/70; PULSE 83; TEMP 36.6; O2SAT 98; BMI 22.5
== END 2024-01-14 12:38 | disposition home or self-care (01) ==
PROVIDERS: PCP Internal Medicine; Visit Provider Registered Nurse
DX: H61.23 Impacted cerumen, bilateral (principal)
CPT/HCPCS: 69209; 99213

== ENCOUNTER 2024-01-24 15:45 | Outpatient (AMB) | payer MEDICARE, MEDICAID, SELFPAY ==
[2024-01-24 15:53] VITALS: BP 112/66; PULSE 85; O2SAT 98; BMI 22.7
--- NOTE | 2024-01-24 15:53 | A.OFFPC_ITS ---
Vital Signs 01/24/24 15:53 Height 5 ft 8 in Weight 149 lb BMI 22.7 BP 112/66 Blood Pressure Location Rt brachial Position Sitting Pulse 85 Pulse Source Pulse Oximeter Pulse Oximetry (%) 98 Oxygen Delivery Method Room Air Intake Visit Reasons: swollen feet/red,purpleish, Intake Note: Pt is here today c/o bilateral feet red and swollen since x5days Allergies codeine [CODEINE] Allergy (Intermediate, Verified 01/24/24 16:03) HIVES, rash Sulfa (Sulfonamide Antibiotics) Allergy (Intermediate, Verified 01/24/24 16:03) RASH, anaphylaxis, anaphylaxis tramadol [Ultram] Allergy (Intermediate, Verified 01/24/24 16:03) trouble breathing Medication List - Last Reconciled 01/24/24 by Maki Foreman MD albuterol sulfate 90 mcg/actuation 2 puffs inhalation Q6H PRN amlodipine 5 mg PO QAM calcium carbonate-vitamin D3 600 mg-10 mcg (400 unit) 2 tabs PO DAILY carisoprodol 350 mg PO PRN; take 1 tab po in am and 1/2 tablet po in pm clonazepam mg PO duloxetine 60 mg PO DAILY fluticasone propionate 50 mcg/actuation 1 spray intranasal QAM meclizine 25 mg PO DAILY PRN metoprolol succinate ER 50 mg PO DAILY omeprazole 40 mg PO DAILY quetiapine 200 mg PO BEDTIME ropinirole 4 mg PO BEDTIME sofosbuvir-velpatasvir 400-100 mg (Epclusa) 1 tab PO DAILY 12 weeks Tobacco use date assessed: 01/24/24 Dental Screening Dental Screen Date: 01/24/24 Did you have a dental visit in the last 12 months?: No Did you have a dental problem in the last 6 months where you did not have access to dental care?: No Was dental information given to patient?: No HPI swollen feet/red,purpleish, HPI Details 63-year-old lady here today complaining of intermittent pain and swelling, and duskiness in both feet, present now for the last 5 days. This was accompanied by tingling and some numbness in both lower extremities COUNTS INCLUDE 234 BEDS AT THE [facility] Medical History (Updated 01/24/24 @ 16:25 by Maki Foreman MD) Pain and swelling of lower extremity Hx of TIA (transient ischemic attack) and stroke Headache Dizziness of unknown cause Restless leg syndrome Distal radius fracture, left Elbow fracture, right Lung nodule seen on imaging study Impaired fasting glucose Osteoporosis Generalized anxiety disorder Primary insomnia Multiple rib fractures Lymphocytic colitis Tubular adenoma of colon Gastritis History of SIADH Hx of compression fracture of spine History of pelvic fracture Hepatitis C History of herpes genitalis Fibromyalgia Surgical History H/O esophagogastroduodenoscopy History of colonoscopy History of hysterectomy Ectopic Family History Father HTN (hypertension) Mother HTN (hypertension) Colitis Maternal Grandfather No problems noted. Maternal Grandmother HTN (hypertension) Paternal Grandfather No problems noted. Paternal Grandmother No problems noted. Sister Breast cancer Sister Bladder cancer Sister No problems noted. Sister No problems noted. Social History Household Members: Other Housing: Apartment Alcohol intake: current Alcohol intake frequency: does not drink Patient Tobacco Use Status: Current everyday Tobacco user Cigarettes Per Day: 12 e-Cigarette/Vaping Use: Never Used Second Hand Smoke Exposure: No service: No Current occupational status: disabled Current occupation: left hand dominant Cognitive needs: No Hearing needs: No Vision needs: Yes Questionnaire Thrive Questionnaire Date Thrive assessed: 12/22/21 RYAN-7 AMB Questionnaire RYAN-7 Date RYAN - 7 assessed: 12/22/21 Source: Developed by Drs. Trent Haas, Татьяна Cano, Altaf Sethi and colleagues, with an educational devon from [employer]. Review of Systems Const Details: Denies fever(s) and Denies weakness ENT Reports no additional complaints Card Denies chest pain, Denies chest pain with activity, Denies syncope, Denies irregular heart rhythm and Denies lightheadedness Resp Reports no additional complaints GI Denies abdominal pain, Denies change in bowel habits and Reports heartburn Reports no additional complaints Musc Reports myalgias, Reports arthralgias and Reports stiffness Neuro Denies syncope, Denies focal weakness, Reports restless legs (Controlled on pramipexole) and Denies weakness Psych Reports as per HPI Endo Reports no additional complaints Cain/Lymph Denies easy bleeding and Denies easy bruising Physical exam (Primary Care) Vital Signs: Last Vital Signs Pulse 85 01/24/24 15:53 BP 112/66 01/24/24 15:53 Pulse Ox 98 01/24/24 15:53 Oxygen Delivery Method Room Air 01/24/24 15:53 BMI result Body Mass Index 22.7 Tobacco/Smoking Status: Tobacco use Status Tobacco use date assessed 01/24/24 01/24/24 15:57 Patient Tobacco Use Status Current everyday Tobacco 01/24/24 15:57 e-Cigarette/Vaping Use Never Used 01/24/24 15:57 Thrive Assessment: Date of Thrive Assessment Date Thrive assessed 12/22/21 01/24/24 15:57 Const General: no acute distress and alert Orientation/consciousness: patient oriented x3 [facility] General nose exam: Normal external nose present and No nasal discharge present Face and sinus: Yes face symmetric Mouth: moist mucous membranes Eyes General: appearance normal, both eyes and all related structures Neck Neck: Yes full ROM, Yes no lymphadenopathy and Yes supple Resp Auscultation: clear to auscultation bilaterally Cardio Rate: regular rate Rhythm: regular rhythm Heart sounds: S1 normal heart sound present and S2 normal heart sound present Peripheral pulses: other (Faint pulse on dorsalis pedis, unable to palpate posterior tibial pulses) GI Palpation (GI): Soft to palpation, nontender, no guarding and no masses Auscultation: normal bowel sounds Skin Other: Slight erythema in both feet Neuro General: patient oriented x3, gait normal, moves all extremities, Normal light touch and pain sensation and no focal motor deficits Extrem Other: 1+ edema bilaterally, unable to fully appreciate posterior tibial pulse, very faint dorsalis pedis pulse palpated bilaterally, feet cool to touch, nontender to palpation General: Yes normal gait Assessment and Plan Assessment & Plan (1) Pain and swelling of lower extremity: Code(s): M79.606 - Pain in leg, unspecified; M79.89 - Other specified soft tissue disorders Plan: Stat arterial US of both lower extremities ordered . started on aspirin 81 mg daily ,and again advised to stop smoking patient advised to go to the ER if any worsening of pain, severe swelling pain redness, numbness in both lower extremities Orders: Orders US arterial duplex LE 01/24/24 M79.606 - Pain in leg, unspecified, M79.89 - Other specified soft tissue disorders Medications: New aspirin (Adult Aspirin Regimen) 81 mg PO DAILY 30 tabs 0RF Coding Level of Care Code Est Pt Level 4 (19126) Diagnoses Pain and swelling of lower extremity M79.606; M79.89
== END 2024-01-24 16:40 | disposition home or self-care (01) ==
PROVIDERS: PCP Internal Medicine; Visit Provider Internal Medicine
DX: M79.606 Pain in leg, unspecified (principal); M79.89 Other specified soft tissue disorders
CPT/HCPCS: 99214

== ENCOUNTER 2024-01-28 13:51 | Outpatient (REF) | payer MEDICARE, MEDICAID, SELFPAY ==
--- NOTE | ~2024-01-28 | US_ITS ---
EXAMINATION: NONINVASIVE ASSESSMENT OF THE ARTERIES OF BOTH LOWER EXTREMITIES Jose Angel Finley MD CLINICAL INFORMATION: Bilateral leg pain TECHNIQUE: Bilateral lower extremity duplex ultrasound was performed with velocity measurements and waveform analysis in the common femoral arteries, profunda femoris arteries, proximal mid and distal superficial femoral arteries, popliteal arteries and tibial vessels. This study was performed only at rest. COMPARISON: None FINDINGS: Velocities in cm/sec and phasicity as well as the presence of plaque are reported below. RIGHT LEG: Minimal plaque is seen with the exception of tibial vessels. There is triphasic flow proximally from the common femoral artery down to the proximal SFA. More distally, flow is monophasic in the SFA and proximal popliteal. In the distal popliteal, multiphasic flow is seen. Monophasic flow is present in the tibial vessels with the exception of the peroneal artery distally where there is multiphasic flow. Common Femoral: 183 Profunda Femoris: 74 Proximal SFA: 140 Mid SFA: 112 Distal SFA: 86 Popliteal: 72 Posterior tibial: 117 Peroneal: 57 Anterior tibial: 101 Dorsalis pedis: 30 LEFT LEG: Minimal plaque is seen with the exception of the tibial vessels where there is moderate plaque. Multiphasic flow is present in the common femoral artery and profunda femoris artery becomes monophasic in the proximal and mid SFA. In the distal SFA popliteal artery there is multiphasic flow present with monophasic flow noted in the tibial vessels. Common Femoral: 174 Profunda Femoris: 108 Proximal SFA: 145 Mid SFA: 130 Distal SFA: 96 Popliteal: 73 Posterior Tibial: 107 Peroneal: 58 Anterior tibial: 70 Dorsalis pedis: 67 US/US arterial duplex LE BI IMPRESSION: There is some peripheral vascular disease with some monophasic flow distally. Critical stenoses are not seen. MRA may be useful for further evaluation..
== END 2024-01-28 13:52 | disposition home or self-care (01) ==
LOC: HO.HMGCX 13:51
PROVIDERS: PCP Internal Medicine; Visit Provider Internal Medicine
DX: M79.604 Pain in right leg (principal); M79.605 Pain in left leg; M79.89 Other specified soft tissue disorders
CPT/HCPCS: 93925

== ENCOUNTER 2024-02-01 08:37 | Outpatient (AMB) | payer MEDICARE, MEDICAID, SELFPAY ==
--- NOTE | 2024-02-01 08:35 | A.OFFPC_ITS ---
Intake Visit Reasons: R tinged of purple on r great toe Intake Note: Pt is having a teleheatlh visit Andriod Allergies codeine [CODEINE] Allergy (Intermediate, Verified 02/01/24 08:54) HIVES, rash Sulfa (Sulfonamide Antibiotics) Allergy (Intermediate, Verified 02/01/24 08:54) RASH, anaphylaxis, anaphylaxis tramadol [Ultram] Allergy (Intermediate, Verified 02/01/24 08:54) trouble breathing Medication List - Last Reconciled 02/01/24 by Maki Foreman MD albuterol sulfate 90 mcg/actuation 2 puffs inhalation Q6H PRN amlodipine 5 mg PO QAM aspirin (Adult Aspirin Regimen) 81 mg PO DAILY calcium carbonate-vitamin D3 600 mg-10 mcg (400 unit) 2 tabs PO DAILY carisoprodol 350 mg PO PRN; take 1 tab po in am and 1/2 tablet po in pm clonazepam mg PO duloxetine 60 mg PO DAILY meclizine 25 mg PO DAILY PRN metoprolol succinate ER 50 mg PO DAILY omeprazole 40 mg PO DAILY quetiapine 200 mg PO BEDTIME ropinirole 4 mg PO BEDTIME sofosbuvir-velpatasvir 400-100 mg (Epclusa) 1 tab PO DAILY 12 weeks Tobacco use date assessed: 02/01/24 Dental Screening Dental Screen Date: 02/01/24 Did you have a dental visit in the last 12 months?: No Did you have a dental problem in the last 6 months where you did not have access to dental care?: No Was dental information given to patient?: Patient declined HPI R tinged of purple on r great toe HPI Details 63-year-old lady here today to discuss r esults of recent arterial ultrasound of both lower extremities. It showed some peripheral vascular disease with some monophasic flow distally. Critical stenoses are not seen. Still having intermittent episodes of swelling and mild purplis discoloration in both feet after walking or standing for extended periods of time. This resolves when she elevates her leg. Denies any pain in extremities. A referral already has made for her to see vascular surgery for further evaluation and management. She also has been advised to stop smoking, interested in quitting and would like to try nicotine patch, which she has used in the past. [facility] Medical History (Updated 02/01/24 @ 09:20 by Maki Foreman MD) Cigarette smoker motivated to quit Peripheral vascular disease Pain and swelling of lower extremity Hx of TIA (transient ischemic attack) and stroke Headache Dizziness of unknown cause Restless leg syndrome Distal radius fracture, left Elbow fracture, right Lung nodule seen on imaging study Impaired fasting glucose Osteoporosis Generalized anxiety disorder Primary insomnia Multiple rib fractures Lymphocytic colitis Tubular adenoma of colon Gastritis History of SIADH Hx of compression fracture of spine History of pelvic fracture Hepatitis C History of herpes genitalis Fibromyalgia Surgical History H/O esophagogastroduodenoscopy History of colonoscopy History of hysterectomy Ectopic Family History Father HTN (hypertension) Mother HTN (hypertension) Colitis Maternal Grandfather No problems noted. Maternal Grandmother HTN (hypertension) Paternal Grandfather No problems noted. Paternal Grandmother No problems noted. Sister Breast cancer Sister Bladder cancer Sister No problems noted. Sister No problems noted. Social History Household Members: Other Housing: Apartment Alcohol intake: current Alcohol intake frequency: does not drink Patient Tobacco Use Status: Current everyday Tobacco user Cigarettes Per Day: 12 e-Cigarette/Vaping Use: Never Used Second Hand Smoke Exposure: No service: No Current occupational status: disabled Current occupation: left hand dominant Cognitive needs: No Hearing needs: No Vision needs: Yes Questionnaire Thrive Questionnaire Date Thrive assessed: 12/22/21 RYAN-7 AMB Questionnaire RYAN-7 Date RYAN - 7 assessed: 12/22/21 Source: Developed by Drs. Trent Haas, Татьяна Cano, Altaf Sethi and colleagues, with an educational devon from [email or web address] Review of Systems Const Details: Denies fever(s) and Denies weakness ENT Reports no additional complaints Card Denies chest pain, Denies syncope, Denies irregular heart rhythm and Denies lightheadedness Resp Reports no additional complaints GI Denies abdominal pain, Denies change in bowel habits and Reports heartburn Reports no additional complaints Musc Reports myalgias, Reports arthralgias and Reports stiffness Skin/Breast Reports as per HPI Neuro Denies syncope, Denies focal weakness, Reports restless legs (Controlled on pramipexole) and Denies weakness Psych Reports as per HPI Endo Reports no additional complaints Cain/Lymph Denies easy bleeding and Denies easy bruising Physical exam (Primary Care) Tobacco/Smoking Status: Tobacco use Status Tobacco use date assessed 02/01/24 02/01/24 08:36 Patient Tobacco Use Status Current everyday Tobacco 02/01/24 08:36 e-Cigarette/Vaping Use Never Used 02/01/24 08:36 Thrive Assessment: Date of Thrive Assessment Date Thrive assessed 12/22/21 02/01/24 08:36 Telehealth Telehealth Telehealth Platform: [employer] Location of provider rendering services: practice address Location of patient: address on file Patient Identification confirmed using: Name, : Yes Telehealth method: video Patient verbally consented to treatment: Yes Patient verbally consented to billing insurance company: Yes Patient informed of any privacy concerns related to visit: Yes Minutes spent on Phone/Video with Pt.: 15 Results Reviewed Results Reviewed: US/US arterial duplex LE BI IMPRESSION: There is some peripheral vascular disease with some monophasic flow distally. Critical stenoses are not seen. MRA may be useful for further evaluation.. Assessment and Plan Assessment & Plan (1) Peripheral vascular disease: Code(s): I73.9 - Peripheral vascular disease, unspecified Plan: Fasting lipid panel ordered, patient already started on aspirin 81 mg daily and referred to vascular surgery for further evaluation and management. Patient also has been advised to quit smoking, she is willing to quit and wants to try using the nicotine patch, which she has tried in the past and was able to successfully quit for several months (2) Cigarette smoker motivated to quit: Code(s): F17.210 - Nicotine dependence, cigarettes, uncomplicated Plan: Prescription sent for nicotine patch 14 mg per patch to apply to upper chest, upper arm upper back, rotate sites of application, remove patch before sleeping. Will see her back for follow-up in 03/2024 Orders: Orders Lipid Panel 02/01/24 I73.9 - Peripheral vascular disease, unspecified Medications: New nicotine 1 patch transdermal DAILY 28 ea 1RF Coding Level of Care Code Tele Est Pt Level 4 (56532) Diagnoses Peripheral vascular disease I73.9 Cigarette smoker motivated to quit F17.210
== END 2024-02-01 11:51 | disposition home or self-care (01) ==
LOC: HO.HMGC 08:37
PROVIDERS: PCP Internal Medicine; Visit Provider Internal Medicine
DX: I73.9 Peripheral vascular disease, unspecified (principal); F17.210 Nicotine dependence, cigarettes, uncomplicated
CPT/HCPCS: 99214

== ENCOUNTER → 2024-07-17 10:45 | Outpatient (BNVA) | payer MEDICARE, MEDICAID, SELFPAY | PROVIDERS: PCP Internal Medicine ==

== ENCOUNTER 2024-08-07 13:51 | Outpatient (REF) | payer MEDICARE, MEDICAID, SELFPAY ==
--- OUTSIDE RECORDS SUMMARY | 2024-08-07 16:26 | XMS_ITS | Data Portability ---
Author Organization [facility], [address] Address [address] [place] [address] Assessment No assessment recorded. Plan of Treatment Reminders Order Date Submit Date Provider Last Modified By Organization Details Last Modified Time Details Appointments None record ed. Lab None record ed. Referral None record ed. Procedures None record ed. Surgeries None record ed. Imaging None record ed. Medication Orders None record ed. Patient TargetsNo targets recorded. Patient InstructionsNo instructions recorded. Reason for Referral None Reported. Medical Equipment None Reported. Vitals None Recorded Social History None recorded. Functional Status None recorded. Mental Status None recorded. Family History Nothing Reported. Medical History No medical history recorded. Gynecological HistoryNo gynecological history recorded. Obstetrics History GPAL:G 0 P 0 0 0 0 Past Encounters Encounter ID Performer Location Encounter Start Date Encounter Closed Date Diagnosis/Indication Diagnosis SNOMED-CT Code Diagnosis ICD10 Code Diagnosis Note [id number] [address] [place] [address] 03/09/2020 14:26:19 03/09/2020 16:36:18 [id number] [address] [place] [address] 12/31/2015 11:03:06 12/31/2015 12:48:18 Health Concerns Section Related Observation LastModified by Organization Detai ls LastModified Time None Recorded Concern Status LastModified by Organization Details LastModified Time None Recorded Advance Directives Directive None Recorded Payers Encounter Date Sequence Insurance Name Policy Number Policy Baez Covered Member ID Baez Member ID Guarantor Name 12/31/2015 1 [place] B-[place]: [employer] Raul Ramos [id number] Raul Ramos 12/31/2015 2 [place] [facility] Raul Ramos [id number] Raul A Richard 03/09/2020 1 [place] [employer] Raul Wolf Richard [id number] Raul Luciano Richard 03/09/2020 2 [place] [facility] Raul A Richard [id number] Raul A Richard OBGyn Episode No OBEpisode recorded.
[2024-08-07 17:09] LABS: Alanine Aminotransferase 26 U/L (0-31); Alkaline Phosphatase 83 U/L (39-117); Aspartate Amino Transferase 37 U/L (5-31); Bilirubin Direct 0.1 mg/dL (0.0-0.5); Bilirubin Total 0.3 mg/dL (0.0-1.0); Cholesterol 188 mg/dL (<200); HDL Cholesterol 64 mg/dL (>40); LDL Cholesterol Calculated 107 mg/dL (<100); Total Protein 7.6 g/dL (6.5-8.0); Triglycerides 87 mg/dL (<150)
[2024-08-08 12:00] LABS: Influenza A PCR NEGATIVE (Negative); Influenza B PCR NEGATIVE (Negative); Resp Syncy Virus RNA Qual PCR NEGATIVE (Negative); SARS COV2 PCR INHOUSE NEGATIVE (Negative)
[2024-08-09 17:39] LABS: HCV Log PCR 6.98 Log IU/mL (NOT DETECTED); HepC Viral Load 9580000 IU/mL (NOT DETECTED)
== END 2024-08-07 13:52 | disposition home or self-care (01) ==
LOC: HO.HMGCLDS 13:51
PROVIDERS: PCP Internal Medicine; Referring Provider Internal Medicine; Visit Provider Internal Medicine
DX: J06.9 Acute upper respiratory infection, unspecified (principal); I73.9 Peripheral vascular disease, unspecified; R42 Dizziness and giddiness; M79.7 Fibromyalgia; B19.20 Unspecified viral hepatitis C without hepatic coma; F41.1 Generalized anxiety disorder; Z86.73 Personal history of transient ischemic attack (TIA), and cerebral infarction without residual deficits; Z79.82 Long term (current) use of aspirin; Z79.899 Other long term (current) drug therapy
CPT/HCPCS: 0241U; 36415; 80061; 80076; 87522; 99212

== ENCOUNTER 2024-12-03 14:58 | Outpatient (REF) | payer MEDICARE, MEDICAID, SELFPAY ==
--- NOTE | ~2024-12-03 | XR_ITS ---
EXAMINATION: XR FOOT, RIGHT CLINICAL INFORMATION: M79.671 - Pain in right foot COMPARISON: 07/24/2019. TECHNIQUE: AP, lateral, and oblique views of the right foot. FINDINGS: There is diffuse mild osteopenia. There is no fracture, dislocation, or suspicious bone lesion. There is normal alignment. Mild to moderate osteoarthrosis at the first MTP joint. Mild arthritis at the tarsometatarsal joints. Normal plantar arch. No hindfoot abnormality. No soft tissue abnormalities. XR/XR foot RT min 3V IMPRESSION: 1. No acute bony or soft tissue abnormalities of the right foot. Electronically signed by: Kings Winters MD 12/03/2024 04:11 PM EDT
--- OUTSIDE RECORDS SUMMARY | 2024-12-03 15:06 | XMS_ITS | Clinical Summary ---
Author Organization [facility] it Address [address] [place] [address] Care Team Providers Care Wincher Name Role Phone Maki Foreman MD Primary Care Provider Social History Tobacco Use Types Packs/Day Years Used Date Smoking Tobacco: Never Assessed Comments Unknown Sex and Gender Information Value Date Recorded Sex Assigned at Not on file Legal Sex Female 10:28 PM EST Gender Identity Not on file Sexual Orientation Not on file Plan of Treatment Health Maintenance Due Date Last Done Comments Breast Cancer Screening 1960 Hepatitis A Vaccines (1 of 2 - Risk 2-dose series) 1979 Cervical Cancer Screening: P ap Smear 1981 Pneumococcal Vaccine: 50+ Ye ars (1 of 1 - PCV) 2010 Zoster Vaccines (1 of 2) 2010 Hepatitis B Vaccines (1 of 3 - Risk 3-dose series) 2020 RSV Immunization Adult Patie nts (1 - Risk 60-74 years 1-dose series) 2020 DTaP,Tdap,and Td Vaccines (2 - Td or Tdap) 04/10/2021 04/10/2011 Colorectal Cancer Screening: Colonoscopy 08/14/2023 Depression Screening 08/14/2023 HIV Screening 08/14/2023 Hepatitis C Screening 08/14/2023 Social Influencers of Health Screening 08/14/2023 COVID-19 Vaccine (2023-2 5 season) 2024 Influenza Vaccine (Season Ended) 2025 HIB Vaccines Aged Out No longer eligi ble based on patient's age to complete this topic HPV Vaccines Aged Out No longer eligi ble based on patient's age to complete this topic IPV Vaccines Aged Out No longer eligi ble based on patient's age to complete this topic MMR Vaccines Aged Out No longer eligi ble based on patient's age to complete this topic Meningococcal ACWY Vaccine Aged Out N o longer eligible based on patient's age to complete this topic Meningococcal B Vaccine Aged Out No l onger eligible based on patient's age to complete this topic Pneumococcal Vaccine: Pediat rics (0 to 5 Years) and At-Risk Patients (6 to 64 Years) Aged Out No longer eligi ble based on patient's age to complete this topic RSV Immunization Patients Un ciara 20 months Aged Out No longer eligible b ased on patient's age to complete this topic Varicella Vaccines Aged Out No longer eligible based on patient's age to complete this topic Care Teams Wincher Relationship Specialty Start Date End Date Maki Foreman MD [address] [place] [address] PCP - General 08/02/16
--- OUTSIDE RECORDS SUMMARY | 2024-12-03 15:06 | XMS_ITS | Data Portability ---
Author Organization [facility], [address] Address [address] [place] [address] Assessment No assessment recorded. Plan of Treatment [...] SNOMED-CT Code Diagnosis ICD10 Code Diagnosis Note [id number] [address] [address] [place] [address] 03/09/2020 14:26:19 03/09/2020 16:36:18 [id number] [address] [address] [place] [address] 12/31/2015 11:03:06 12/31/2015 12:48:18 Health Concerns Section Related Observation LastModified by Organization Detai ls LastModified Time None Recorded Concern Status LastModified by Organization Details LastModified Time None Recorded Advance Directives Directive None Recorded Payers Insurance Date Sequence Insurance Name Policy Number Policy Baez Covered Member ID Baez Member ID Guarantor Name 11/17/2022 1 [place]IC[place] B-[place]: [employer] Raul Ramos [id number] Raul Ramos 11/17/2022 2 [place] [facility] Raul Ramos [id number] 1 Raul Ramos OBGyn Episode No OBEpisode recorded.
--- OUTSIDE RECORDS SUMMARY | 2024-12-03 15:06 | XMS_ITS | Continuity of Care Document ---
Author Organization [facility] [address] [place] [address] Phone [phone] Social History Type Date Description Comments Sex Unknown Medical Devices Description No Information Available Encounters Description No Information Available Assessments Description No Information Available Plan of Treatment No Information Available Functional Status Description No Information Available Mental Status Description No Information Available Referrals Description No Information Available
[2024-12-03 16:37] LABS: Hemoglobin 11.4 g/dl (12.0-16.0); Mean Corpuscular HGB Conc 32.6 g/dl (31.0-35.0); Mean Corpuscular Hemoglobin 27.9 pg (27.0-33.0); Mean Corpuscular Volume 85.8 fL (80.0-98.0); Platelet Count 308 X10*3/uL (160-400); Red Blood Count 4.08 X10*6/uL (4.20-5.50); Red Cell Distribution Width 15.5 % (11.0-16.0); White Blood Count 6.3 X10*3/uL (4.8-10.8)
[2024-12-03 16:47] LABS: Prothrombin Time 11.1 SEC (10.9-12.4)
[2024-12-03 17:01] LABS: Alanine Aminotransferase 34 U/L (0-31); Albumin Level 4.4 g/dL (3.5-5.0); Alkaline Phosphatase 81 U/L (39-117); Anion Gap 13 (12-20); Aspartate Amino Transferase 40 U/L (5-31); Bilirubin Total 0.4 mg/dL (0.0-1.0); Blood Urea Nitrogen 14 mg/dL (9-16); Calcium 9.1 mg/dL (8.4-10.2); Carbon Dioxide 25 mmol/L (22-29); Chloride 93 mmol/L (96-108); Estimated Glomerular Filt Rate > 60; Glucose Random 108 mg/dL (60-115); Potassium 4.6 mmol/L (3.3-5.1); Sodium 126 mmol/L (135-145); Total Protein 7.4 g/dL (6.5-8.0)
[2024-12-10 16:55] LABS: FIB-ALT 26 U/L (6-29); FIB-Alpha-2-Macroglobulin 356 mg/dL (106-279); FIB-Apolipoprotein A1 187 mg/dL (101-198); FIB-GGT 22 U/L (3-65); FIB-Haptoglobin 97 mg/dL (43-212); FIB-Total Bilirubin 0.4 mg/dL (0.2-1.2); Liver Fibrosis Score 0.34; Liver Fibrosis Stage F1-F2; Nec Inflam Act Grade A0; Nec Inflam Act Score 0.13; Reference ID 5507927
== END 2024-12-03 14:59 | disposition home or self-care (01) ==
LOC: HO.HMGCLDS 14:58
PROVIDERS: PCP Internal Medicine; Referring Provider Physician Assistant; Visit Provider Internal Medicine
DX: S93.601A Unspecified sprain of right foot, initial encounter (principal); I10 Essential (primary) hypertension; B19.20 Unspecified viral hepatitis C without hepatic coma; M79.671 Pain in right foot; W20.8XXA Other cause of strike by thrown, projected or falling object, initial encounter; Y93.9 Activity, unspecified; Y92.9 Unspecified place or not applicable; Y99.9 Unspecified external cause status; Z79.899 Other long term (current) drug therapy
CPT/HCPCS: 36415; 73630; 80053; 81596; 85027; 85610; 99212

== ENCOUNTER 2024-12-03 15:11 | Outpatient (AMB) | payer MEDICARE, MEDICAID, SELFPAY ==
--- OUTSIDE RECORDS SUMMARY | 2024-12-03 15:18 | XMS_ITS ---
Continuity of Care Document (CCD) Created on: December 03, 2024 Richard Raul External Reference #: [id number] : [id number] Sex: Female Author Organization [facility] [address] [place] [address] Phone [phone] Social History Type Date Description Comments Sex Unknown Medical Devices Description No Information Available Encounters Description No Information Available Assessments Description No Information Available Plan of Treatment No Information Available Functional Status Description No Information Available Mental Status Description No Information Available Referrals Description No Information Available
--- NOTE | 2024-12-03 15:23 | MHC.OFFWIV ---
Intake Vital Signs 12/03/24 15:31 Height 5 ft 8 in Weight 139 lb 2 oz BMI 21.2 BP 130/86 Blood Pressure Location Rt brachial Position Sitting Pulse 76 Pulse Source Pulse Oximeter Pulse Oximetry (%) 98 Oxygen Delivery Method Room Air Intake Visit Reasons: EP RT foot injury Intake Note: Patient here for right foot injury after dropping a metal container with meds on it which happened last night. Patient Tobacco Use Status: Current everyday Tobacco user Allergies codeine [CODEINE] Allergy (Intermediate, Verified 12/03/24 15:39) HIVES, rash Sulfa (Sulfonamide Antibiotics) Allergy (Intermediate, Verified 12/03/24 15:39) RASH, anaphylaxis, anaphylaxis tramadol [Ultram] Allergy (Intermediate, Verified 12/03/24 15:39) trouble breathing Do you need a note to return to daycare/school/sports/work: No HPI HPI Comments History of Present Illness Details History of Present Illness - The patient is a 64-year-old female presenting with right foot pain following an incident where a metal box fell on her right foot while wearing flip-flops. - There is noted swelling in the right midfoot without pain involving the heel or toes, able to walk immediately after but cannot bend foot. - Initial self-treatment with ice and ibuprofen provided insufficient relief. - Her medical history includes severe osteoporosis, and she expresses concern about the possibility of fracture as she has had many fractures. - Currently, she is on amlodipine for hypertension and soma and is out of these meds. She tells me her primary care doctor requested she get labs prior to her PCP refilling some of her medications. She tells me she just got the labs done and is asking me to let her PCP know. Physical Exam General: Cooperative, healthy appearing, comfortable, no acute distress and well developed Orientation: Patient oriented x3 Limitations: Cannot bend right foot Head: Normal to inspection Ears: Hearing grossly normal bilaterally Nose: Normal External nose present Face and sinus: Normal facial exam Eyes: Appearance normal, both eyes and all related structures Neck: Normal visual inspection and Yes full ROM Respiratory: Normal respiratory effort and able to speak in complete sentences. Skin: No rashes or lesions noted Neuro: Patient oriented x3, limping gait Extremities: Right foot with midfoot slight edema, tenderness to palpation on all 5 metatarsals, and toes with full range of movement and NVI, otherwise normal exam. No heel pain [facility] Medical History Peripheral vascular disease Hx of TIA (transient ischemic attack) and stroke Headache Dizziness of unknown cause Restless leg syndrome Distal radius fracture, left Elbow fracture, right Lung nodule seen on imaging study Impaired fasting glucose Osteoporosis Generalized anxiety disorder Primary insomnia Multiple rib fractures Lymphocytic colitis Tubular adenoma of colon Gastritis History of SIADH Hx of compression fracture of spine History of pelvic fracture Hepatitis C History of herpes genitalis Fibromyalgia Surgical History H/O esophagogastroduodenoscopy History of colonoscopy History of hysterectomy Ectopic Family History Father HTN (hypertension) Mother HTN (hypertension) Colitis Maternal Grandfather No problems noted. Maternal Grandmother HTN (hypertension) Paternal Grandfather No problems noted. Paternal Grandmother No problems noted. Sister Breast cancer Sister Bladder cancer Sister No problems noted. Sister No problems noted. Social History Household Members: Other Housing: Apartment Alcohol intake: current Alcohol intake frequency: does not drink Patient Tobacco Use Status: Current everyday Tobacco user Cigarettes Per Day: 12 e-Cigarette/Vaping Use: Never Used Second Hand Smoke Exposure: No service: No Current occupational status: disabled Current occupation: left hand dominant Cognitive needs: No Hearing needs: No Vision needs: Yes Review of Systems Const All systems reviewed & are unremarkable except as noted in HPI and below Physical Exam Vital Signs: Last Vital Signs Pulse 76 12/03/24 15:31 BP 130/86 12/03/24 15:31 Pulse Ox 98 12/03/24 15:31 Oxygen Delivery Method Room Air 12/03/24 15:31 BMI result Body Mass Index 21.2 Results Reviewed Results Reviewed: XR/XR foot RT min 3V IMPRESSION: 1. No acute bony or soft tissue abnormalities of the right foot. Electronically signed by: Kings Winters MD 12/03/2024 04:11 PM EDT RP Assessment & Plan Assessment & Plan (1) Right foot pain: Code(s): M79.671 - Pain in right foot Plan: An x-ray has been requested to identify potential fractures due to swelling and movement restrictions in the right foot, considering the patient's history of osteoporosis. Ice and ibuprofen had minimal effects, indicating a need for further evaluation and possible treatment adjustments post-imaging. X-ray of the foot showed no acute fracture or dislocation. We have put patient in a walking shoe to allow her to rest and walk more comfortably. Recommended using Aleve and ice and rest over the next week or 2 and follow up with her PCP if no improvement in her pain. Sent workgroup message to nurse for refills on amlodipone and soma as pt just got her labs done and is asking for refills. Patient was informed and verbally consented to the use of an ambient scribe for clinic note documentation during this visit. Orders: Orders XR foot RT min 3V Today M79.671 - Pain in right foot Coding Level of Care Code Est Pt Level 4 (31709) Diagnoses Right foot pain M79.671
[2024-12-03 15:31] VITALS: BP 130/86; PULSE 76; O2SAT 98; BMI 21.2
== END 2024-12-03 16:25 | disposition home or self-care (01) ==
PROVIDERS: PCP Internal Medicine; Visit Provider Physician Assistant
DX: M79.671 Pain in right foot (principal)

== ENCOUNTER → 2024-12-03 15:57 | Outpatient (BNV) | payer MEDICARE, MEDICAID, SELFPAY | PROVIDERS: PCP Internal Medicine; Referring Provider Physician Assistant; Visit Provider Radiology Diagnostic Radiology | DX: M79.671 Pain in right foot (principal) | CPT/HCPCS: 73630 ==

== ENCOUNTER 2025-02-21 13:52 | Outpatient (REF) | payer OTHER, SELFPAY ==
--- NOTE | ~2025-02-21 | XR_ITS ---
CLINICAL HISTORY: W19.XXXA - Unspecified fall, initial encounter 4 view, chest and bilateral ribs Comparison: CR/AR/SR - XR CHEST 2 VIEWS - 11/21/22 16:14 EDT Findings: Minimal to mildly displaced fractures of the left 5th, 6, and 7th ribs are identified. Unchanged appearance of remote fractures of the right 8th, 9th, and 10th ribs. Patient has undergone prior vertebral augmentation within the lower thoracic spine. No pneumothorax or pleural effusion. Potential pulmonary nodule seen on prior study is no longer evident. IMPRESSION: 1. Interval development of multiple left rib fractures without pneumothorax or pleural effusion. This document has been electronically signed by: Freddie Boyle MD on 02/21/2025 15:37:02
--- NOTE | ~2025-02-21 | XR_ITS ---
CLINICAL HISTORY: W19.XXXA - Unspecified fall, initial encounter 2 views thoracic spine Comparison: CR - XR RIBS BI MIN 4V W CXR1V - 02/21/25 14:37 EDT CR/NE/SR - XR CHEST 2 VIEWS - 11/21/22 16:14 EDT Findings: Thoracic vertebral bodies are osteopenic. Unchanged vertebral augmentation within the lower thoracic spine, likely T12. Unchanged compression fractures within the midthoracic spine, likely involving T6 and T7. No new compression fractures identified. Overall alignment is unchanged. IMPRESSION: Osteopenia with chronic compression fractures. No acute fracture identified. Given the osteopenia, may consider MRI of the thoracic spine on a nonemergent basis if there is high clinical concern for radiographically occult fracture. This document has been electronically signed by: Freddie Boyle MD on 02/21/2025 15:38:28
== END 2025-02-21 13:53 | disposition home or self-care (01) ==
LOC: HO.HMGCX 13:52
PROVIDERS: PCP Internal Medicine; Visit Provider Physician Assistant Medical
DX: S22.43XA Multiple fractures of ribs, bilateral, initial encounter for closed fracture (principal); R07.81 Pleurodynia; W06.XXXA Fall from bed, initial encounter
CPT/HCPCS: 71111; 72070; 99212

== ENCOUNTER 2025-02-21 13:52 | Outpatient (AMB) | payer MEDICARE, MEDICAID, SELFPAY ==
[2025-02-21 13:53] VITALS: BP 134/78; PULSE 78; RESP 18; TEMP 36.9; O2SAT 97; BMI 20.5
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
--- OUTSIDE RECORDS SUMMARY | 2025-02-21 13:54 | XMS_ITS | Clinical Summary ---
Author Organization [facility] it Address [address] [place] [address] Care Team Providers Care Training And Development Head Name Role Phone Maki Foreman MD Primary [...] 04/10/2021 04/10/2011 Colorectal Cancer Screening: Colonoscopy 08/14/2023 HIV Screening 08/14/2023 Hepatitis C Screening 08/14/2023 Social Influencers of Health Screening 08/14/2023 COVID-19 Vaccine ( - 2023-2 5 season) 2024 Depression Screening 07/16/2024 Influenza Vaccine (#1) 2025 HIB Vaccines Aged Out No longer [...] age to complete this topic Care Teams Training And Development Head Relationship Specialty Start Date End Date Maki Foreman MD [address] [place] [address] PCP - General 08/02/16
== END 2025-02-21 14:57 | disposition home or self-care (01) ==
LOC: HO.HMCWIC 13:52
PROVIDERS: PCP Internal Medicine; Visit Provider Physician Assistant Medical
DX: S22.43XA Multiple fractures of ribs, bilateral, initial encounter for closed fracture (principal)

== ENCOUNTER → 2025-02-21 14:24 | Outpatient (BNV) | payer MEDICARE, MEDICAID, SELFPAY | PROVIDERS: PCP Internal Medicine; Visit Provider Radiology Diagnostic Radiology | DX: S22.42XA Multiple fractures of ribs, left side, initial encounter for closed fracture (principal); M85.88 Other specified disorders of bone density and structure, other site | CPT/HCPCS: 71111; 72070 ==

== ENCOUNTER 2025-03-09 08:49 | Outpatient (AMB) | payer MEDICARE, MEDICAID, SELFPAY ==
[2025-03-09 09:07] VITALS: BP 138/82; PULSE 77; RESP 16; O2SAT 97; BMI 21.0
--- NOTE | 2025-03-09 09:07 | A.OFFPC_ITS ---
Vital Signs 03/09/25 09:07 Height 5 ft 8 in Weight 138 lb BMI 21.0 BP 138/82 Blood Pressure Location Lt brachial Position Sitting Respiration 16 Pulse 77 Pulse Source Pulse Oximeter Pulse Oximetry (%) 97 Oxygen Delivery Method Room Air Intake Visit Reasons: lab result/abd pain Intake Note: Pt is here today c/o abdominal pain Allergies codeine (CODEINE) Allergy (Intermediate, Verified 03/16/25 15:17) HIVES, rash Sulfa (Sulfonamide Antibiotics) Allergy (Intermediate, Verified 03/16/25 15:17) RASH, anaphylaxis, anaphylaxis tramadol (Ultram) Allergy (Intermediate, Verified 03/16/25 15:17) trouble breathing Medication List - Last Reconciled 03/16/25 by Maki Foreman MD albuterol sulfate 90 mcg/actuation 2 puffs inhalation Q6H PRN amlodipine 5 mg PO QAM aspirin (Adult Aspirin Regimen) 81 mg PO DAILY calcium carbonate-vitamin D3 600 mg-10 mcg (400 unit) 2 tabs PO DAILY carisoprodol 350 mg PO DAILY PRN clonazepam mg PO duloxetine 60 mg PO DAILY lemborexant (Dayvigo) 5 mg PO BEDTIME metoprolol succinate ER 50 mg PO DAILY omeprazole 40 mg PO DAILY PRN quetiapine 200 mg PO BEDTIME ropinirole 4 mg PO BEDTIME Tobacco use date assessed: 03/09/25 Dental Screening Dental Screen Date: 03/09/25 Did you have a dental visit in the last 12 months?: No Did you have a dental problem in the last 6 months where you did not have access to dental care?: No Was dental information given to patient?: Patient declined HPI lab result/abd pain HPI Details - The patient is a 64-year-old female pr esenting with rib fractures and liver-related concerns due to Hepatitis C. - The patient sustained multiple rib fra ctures on the left side, specifically the 5th, 6th, and 7th ribs, which are minimally to mildly displaced. - The rib fractures occurred on February 21, following an incident where the patient hit her ribs on a bedside. Reports ongoing pain, especially when taking deep breaths. - The patient has a history of anemia, w ith recent hemoglobin levels at 11.4 and 11.7 g/dL, slightly below the normal range. - The patient has been diagnosed with He patitis C, with a viral load of 9,580,000, up from 4 million. - The patient has hepatocellular disease, with previous imaging showing changes in the liver. She has been referred to [facility] multiple times, was being contacted to schedule appointment but patient states that she never received any of these messages. Complains of recurrent heartburn , generalized body aches, afebrile. - The patient has a history of osteopeni a and compression fractures in the thoracic spine, with prior cementing of the spine. - A previously noted pulmonary nodule is no longer visible on recent imaging. - The patient has fibromyalgia, for whic h she takes Soma at bedtime. [facility] Medical History (Updated 03/09/25 @ 09:49 by Maki Foreman MD) Right upper quadrant abdominal pain Peripheral vascular disease Hx of TIA (transient ischemic attack) and stroke Headache Dizziness of unknown cause Restless leg syndrome Distal radius fracture, left Elbow fracture, right Lung nodule seen on imaging study Impaired fasting glucose Osteoporosis Generalized anxiety disorder Primary insomnia Multiple rib fractures Lymphocytic colitis Tubular adenoma of colon Gastritis History of SIADH Hx of compression fracture of spine History of pelvic fracture Hepatitis C History of herpes genitalis Fibromyalgia Surgical History H/O esophagogastroduodenoscopy History of colonoscopy History of hysterectomy Ectopic Family History Father HTN (hypertension) Mother HTN (hypertension) Colitis Maternal Grandfather No problems noted. Maternal Grandmother HTN (hypertension) Paternal Grandfather No problems noted. Paternal Grandmother No problems noted. Sister Breast cancer Sister Bladder cancer Sister No problems noted. Sister No problems noted. Social History Household Members: Other Housing: Apartment Alcohol intake: current Alcohol intake frequency: does not drink Patient Tobacco Use Status: Current everyday Tobacco user Cigarettes Per Day: 12 e-Cigarette/Vaping Use: Never Used Second Hand Smoke Exposure: No service: No Current occupational status: disabled Current occupation: left hand dominant Cognitive needs: No Hearing needs: No Vision needs: Yes Questionnaire PHQ-9 Over the last 2 weeks, how often have you been bothered by any of the following problems? 1. Little interest or pleasure in doing things: not at all 2. Feeling down, depressed, or hopeless: not at all 3. Trouble falling or staying asleep, or sleeping too much: several days 4. Feeling tired or having little energy: more than half the days 5. Poor appetite or overeating: not at all 6. Feeling bad about yourself - or that you are a failure or have let yourself or your family down: not at all 7. Trouble concentrating on things, such as reading the newspaper or watching television: not at all 8. Moving or speaking so slowly that other people could have noticed. Or the opposite - being so fidgety or restless that you have been moving around a lot more than usual: not at all 9. Thoughts that you would be better off or of hurting yourself in some way: not at all Total score: 3 Depression Screening Interpretation: Negative Depression Screening Done: Yes 42230 - PHQ-9 Billing: Yes Source: Developed by Drs. Trent Haas, Татьяна Cano, Altaf Sethi and colleagues, with an educational devon from [employer]. Thrive Questionnaire Date Thrive assessed: 03/09/25 I am a: Patient What is your living situation today?: I have a steady place to live Within the past 12 months, did the food you bought not last and you didn't have the money to get more?: Never true THRIVE Score: 0 AUDIT C Alcohol Use Questionnaire (AUDIT-C) 1. How often do you have a drink containing alcohol?: Never Total Score: 0 Score Reviewed/Action Taken: Yes RYAN-7 AMB Questionnaire RYAN-7 Date RYAN - 7 assessed: 03/09/25 Feeling nervous, anxious, or on edge: 0 = Not at all Not being able to stop or control worryin = Not at all Worrying too much about different things: 0 = Not at all Trouble relaxin = Not at all Being so restless that it is hard to sit still: 0 = Not at all Becoming easily annoyed or irritable: 0 = Not at all Feeling afraid as if something awful might happen: 0 = Not at all Total RYAN-7 score (0-4 normal; 5-9 mild; 10-14 moderate; 15-21 severe): 0 Source: Developed by Drs. Trent Haas, Татьяна Cano, Altaf Sethi and colleagues, with an educational devon from [employer]. RYAN-7 Assessment Billing RYAN-7 Assessment Tool: RYAN-7 Assessment 24936 Review of Systems Const All systems reviewed & are unremarkable except as noted in HPI and below Physical exam (Primary Care) Vital Signs: Last Vital Signs Pulse 77 03/09/25 09:07 Resp 16 03/09/25 09:07 BP 138/82 03/09/25 09:07 Pulse Ox 97 03/09/25 09:07 Oxygen Delivery Method Room Air 03/09/25 09:07 BMI result Body Mass Index 21.0 Tobacco/Smoking Status: Tobacco use Status Tobacco use date assessed 03/09/25 03/09/25 09:15 Patient Tobacco Use Status Current everyday Tobacco 03/09/25 09:09 e-Cigarette/Vaping Use Never Used 03/09/25 09:09 PHQ-9: PHQ-9 Score PHQ-9: Total score 3 03/16/25 15:26 Depression Screening Interpretation: Negative Thrive Assessment: Date of Thrive Assessment Date Thrive assessed 03/09/25 03/09/25 09:09 Const General: no acute distress and alert Nutritional Appearance: average body habitus Orientation/consciousness: patient oriented x3 HENMT General nose exam: Normal external nose present and No nasal discharge present Face and sinus: Yes face symmetric Mouth: moist mucous membranes Eyes General: appearance normal, both eyes and all related structures Sclerae: sclerae normal Neck Neck: Yes full ROM, Yes no lymphadenopathy and Yes supple Chest Other: Tenderness on palpation on left anterior chest, no crepitus Resp Effort & Inspection: normal respiratory effort, no respiratory distress, no segmental paradox chest wall movement and not tachypneic Auscultation: clear to auscultation bilaterally Cardio Rate: regular rate Rhythm: regular rhythm Heart sounds: S1 normal heart sound present and S2 normal heart sound present GI Palpation (GI): Soft to palpation, nontender, no guarding and no masses Auscultation: normal bowel sounds Skin General skin exam: no rashes or lesions noted and no jaundice Neuro General: patient oriented x3, gait normal, moves all extremities, Normal light touch and pain sensation and no focal motor deficits Extrem General: Yes full ROM, Yes no joint enlargement and Yes normal gait Coding Level of Care Code Est Pt Level 4 (79066) Complex EM visit Add On G2211 Diagnoses Hepatitis C virus infection without hepatic coma, unspecified chronicity B19.20 Hepatic coma status: without hepatic coma Viral hepatitis chronicity: unspecified Multiple fractures of ribs, left side, sequela S22.42XS Primary hypertension I10 Hypertension type: primary hypertension Age-related osteoporosis without current pathological fracture M81.0 Osteoporosis type: age-related Presence of current pathological fracture: without current pathological fracture Fibromyalgia M79.7 Gastro-esophageal reflux disease without esophagitis K21.9 Additional Codes RYAN-7 Assessment Billing - RYAN-7 Assessment Tool: RYAN-7 Assessment 89856 ([id number]) PHQ-9 - 69199 - PHQ-9 Billing: Yes ([id number]) Assessment & Plan Assessment & Plan (1) Hepatitis C: Code(s): B19.20 - Unspecified viral hepatitis C without hepatic coma Category: Medical Qualifiers: Hepatic coma status: without hepatic coma Viral hepatitis chronicity: unspecified Qualified Code(s): B19.20 - Unspecified viral hepatitis C without hepatic coma (2) Multiple fractures of ribs, left side, sequela: Code(s): S22.42XS - Multiple fractures of ribs, left side, sequela (3) HTN (hypertension): Code(s): I10 - Essential (primary) hypertension Category: Medical Qualifiers: Hypertension type: primary hypertension Qualified Code(s): I10 - Essential (primary) hypertension (4) Osteoporosis: Code(s): M81.0 - Age-related osteoporosis without current pathological fracture Category: Medical Qualifiers: Osteoporosis type: age-related Presence of current pathological fracture: without current pathological fracture Qualified Code(s): M81.0 - Age- related osteoporosis without current pathological fracture (5) Fibromyalgia: Code(s): M79.7 - Fibromyalgia Category: Medical (6) Gastro-esophageal reflux disease without esophagitis: Code(s): K21.9 - Gastro-esophageal reflux disease without esophagitis Category: Medical Plan The patient will be referred back to Dr. Burks for further management of Hepatitis C, given the significant increase in viral load. It is crucial to address this promptly to prevent further liver damage. The patient is advised to contact Dr. Burks's office to ensure an appointment is scheduled, as previous attempts to reach her were unsuccessful due to phone issues. For the rib fractures, the patient is advised to avoid activities that may exacerbate the condition, as the fractures are expected to heal on their own. Pain management will be addressed with caution due to liver concerns, and the patient is advised to limit the use of medications that may impact liver function. The patient will undergo a recheck of liver function tests, including a liver panel and electrolytes, to monitor the progression of liver disease. An iron profile will also be conducted to address the anemia. Prescriptions for omeprazole and Soma will be provided to manage GERD and fibromyalgia symptoms, respectively. The patient is advised to monitor symptoms and report any changes. Patient was informed and verbally consented to the use of an ambient scribe for clinic note documentation during this visit. Orders: Orders Vitamin D 25-OH Total 03/09/25 B19.20 - Unspecified viral hepatitis C without hepatic coma, I10 - Essential (primary) hypertension, M81.0 - Age-related osteoporosis without current pathological fracture, R73.01 - Impaired fasting glucose Complete Blood Count Auto Diff 03/09/25 B19.20 - Unspecified viral hepatitis C without hepatic coma, I10 - Essential (primary) hypertension, M81.0 - Age- related osteoporosis without current pathological fracture, R73.01 - Impaired fasting glucose Liver Panel 03/09/25 B19.20 - Unspecified viral hepatitis C without hepatic coma, I10 - Essential (primary) hypertension, M81.0 - Age-related osteoporosis without current pathological fracture, R73.01 - Impaired fasting glucose Basic Metabolic Panel Fasting 03/09/25 B19.20 - Unspecified viral hepatitis C without hepatic coma, I10 - Essential (primary) hypertension, M81.0 - Age- related osteoporosis without current pathological fracture, R73.01 - Impaired fasting glucose IRON PROFILE 03/09/25 B19.20 - Unspecified viral hepatitis C without hepatic coma, I10 - Essential (primary) hypertension, M81.0 - Age-related osteoporosis without current pathological fracture, R73.01 - Impaired fasting glucose Referrals Gastroenterology Referral B19.20 - Unspecified viral hepatitis C without hepatic coma, K21.9 - Gastro-esophageal reflux disease without esophagitis, R10.11 - Right upper quadrant pain Medications: Changed From omeprazole 40 mg PO DAILY 90 caps 0RF K21.9 - Gastro-esophageal reflux disease without esophagitis To omeprazole 40 mg PO DAILY PRN 90 caps 0RF heartburn K21.9 - Gastro-esophageal reflux disease without esophagitis Refilled carisoprodol 350 mg PO DAILY PRN 30 tabs 0RF muscle pain/ spasm M79.7 - Fibromyalgia
--- OUTSIDE RECORDS SUMMARY | 2025-03-09 09:21 | XMS_ITS | Continuity of Care Document ---
Author Organization [facility] [address] [place] [address] Phone [phone] Social History Type Date Description Comments Sex Female Sex Unknown Medical Devices Description No Information Available Encounters Description No Information Available Assessments Description No Information Available Plan of Treatment No Information Available Functional Status Description No Information Available Mental Status Description No Information Available Referrals Description No Information Available
--- OUTSIDE RECORDS SUMMARY | 2025-03-09 09:21 | XMS_ITS | Clinical Summary ---
Author Organization [facility] it Address [address] [place] [address] Care Team Providers Care Religious Healer Name Role Phone Maki Foreman MD Primary [...] age to complete this topic Care Teams Religious Healer Relationship Specialty Start Date End Date Maki Foreman MD [address] [place] [address] PCP - General 08/02/16
== END 2025-03-09 09:45 | disposition home or self-care (01) ==
LOC: HO.HMCC 08:50
PROVIDERS: PCP Internal Medicine; Visit Provider Internal Medicine
DX: B19.20 Unspecified viral hepatitis C without hepatic coma (principal); S22.42XS Multiple fractures of ribs, left side, sequela; I10 Essential (primary) hypertension; M81.0 Age-related osteoporosis without current pathological fracture; M79.7 Fibromyalgia; K21.9 Gastro-esophageal reflux disease without esophagitis

== ENCOUNTER → 2025-03-09 08:49 | Outpatient (BNVA) | payer OTHER, SELFPAY | PROVIDERS: PCP Internal Medicine; Visit Provider Internal Medicine | DX: B19.20 Unspecified viral hepatitis C without hepatic coma (principal); S22.42XS Multiple fractures of ribs, left side, sequela; I10 Essential (primary) hypertension; M81.0 Age-related osteoporosis without current pathological fracture; M79.7 Fibromyalgia; K21.9 Gastro-esophageal reflux disease without esophagitis; X58.XXXS Exposure to other specified factors, sequela | CPT/HCPCS: 96127; 99212 ==

== ENCOUNTER 2025-03-18 10:56 | Outpatient (AMB) | payer OTHER, SELFPAY ==
--- NOTE | 2025-03-18 10:56 | A.OFFVIS_ITS ---
Intake Visit Reasons: Gastroesophageal reflux disease (GERD) Intake Note: Raul presents as a telehealth follow up for her GERD symptoms. CC: She states that she takes omeprazole and it helps with her acid reflux. No other GI symptoms. Small Lot Operator Required: No Allergies codeine (CODEINE) Allergy (Intermediate, Verified 03/18/25 10:58) HIVES, rash Sulfa (Sulfonamide Antibiotics) Allergy (Intermediate, Verified 03/18/25 10:58) RASH, anaphylaxis, anaphylaxis tramadol (Ultram) Allergy (Intermediate, Verified 03/18/25 10:58) trouble breathing HPI Comments Details: This is a 63y.o F with PMH of HTN, osteoporosis, TIA, RYAN, reported chronic HCV who is here to establish care for HCV care. 10/15/23: Pt reports that first found out about HCV decades ago. Unsure mode contraction. REports getting tx with injectable therapy ? interferon but ws not able to tolerate it. Currently cont to report R and L sided abd pain. Also reports retrosternal burning and discomfort with occ difficulty swallowing han certain hard foods but never needed to seek medical attention for this. Taking omeprazole 40 (has known osteoporosis). Does not report abd distention, pruritus, unintentional weight loss. Last viral load noted. Genotype not available. No recent liver imaging in the past 2 years. Also carries diagnosis of lymphocytic colitis but reports not on any medications currently. Does not have chronic diarrhea. 12/03/23: Here for televisit follow up. Labs reviewed consistent with genotype 1a, F1-2 fibrosis on fibrosure. No coinfecton with HBV or HIV. US Abd without any lesions. Barium swallow for GERD pending. 03/18/25: pt canceled 03/2024 visit and no showed 09/2024 visit. Pt also did not respond to numerous phone call and a certified letter in Aug 2024. Now here as telehealth visit. Patient reports that she never started the Epclusa. She was unable to recall if she received it in mail. At present, reports right-sided pain, which she attributes to a fall from the bed in her sleep a few weeks ago. Sustained rib fractures for which she was seen in urgent care. Otherwise, no nausea, vomiting, change in abdominal girth. [facility] Medical History Right upper quadrant abdominal pain Peripheral vascular disease Hx of TIA (transient ischemic attack) and stroke Headache Dizziness of unknown cause Restless leg syndrome Distal radius fracture, left Elbow fracture, right Lung nodule seen on imaging study Impaired fasting glucose Osteoporosis Generalized anxiety disorder Primary insomnia Multiple rib fractures Lymphocytic colitis Tubular adenoma of colon Gastritis History of SIADH Hx of compression fracture of spine History of pelvic fracture Hepatitis C History of herpes genitalis Fibromyalgia Surgical History H/O esophagogastroduodenoscopy History of colonoscopy History of hysterectomy Ectopic Family History Father HTN (hypertension) Mother HTN (hypertension) Colitis Maternal Grandfather No problems noted. Maternal Grandmother HTN (hypertension) Paternal Grandfather No problems noted. Paternal Grandmother No problems noted. Sister Breast cancer Sister Bladder cancer Sister No problems noted. Sister No problems noted. Social History Household Members: Other Housing: Apartment Alcohol intake: current Alcohol intake frequency: does not drink Patient Tobacco Use Status: Current everyday Tobacco user Cigarettes Per Day: 12 e-Cigarette/Vaping Use: Never Used Second Hand Smoke Exposure: No service: No Current occupational status: disabled Current occupation: left hand dominant Cognitive needs: No Hearing needs: No Vision needs: Yes Review of Systems Const All systems reviewed & are unremarkable except as noted in HPI and below Physical Exam Exam Exam: Telehealth over phone Telehealth Telehealth Telehealth Platform: Telephone Location of provider rendering services: practice address Location of patient: address on file Patient Identification confirmed using: Name, : Yes Telehealth method: voice only Patient verbally consented to treatment: Yes Patient verbally consented to billing insurance company: Yes Patient informed of any privacy concerns related to visit: Yes Minutes spent on Phone/Video with Pt.: 17 Assessment & Plan Assessment & Plan (1) Hepatitis C: Code(s): B19.20 - Unspecified viral hepatitis C without hepatic coma Category: Medical Qualifiers: Viral hepatitis chronicity: unspecified Hepatic coma status: without hepatic coma Qualified Code(s): B19.20 - Unspecified viral hepatitis C without hepatic coma (2) Gastro-esophageal reflux disease without esophagitis: Code(s): K21.9 - Gastro-esophageal reflux disease without esophagitis Category: Medical (3) Right upper quadrant abdominal pain: Code(s): R10.11 - Right upper quadrant pain Category: Medical Plan #Chronic HCV: -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 -Child Hernandez Class A Patient reports that she never took Epclusa. Unable to recall if she received it. Strict counseling done today, regarding adherence to the treatment to avoid failure and resistance. Plan: - Will prescribe Epclusa x 12 weeks for 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 - Updated MELD labs ordered - No co-infection with HBV or HIV per labs - US abd ordered - LFTs and viral load at completion of tx and then again to document SVR 12. Follow up 4 months Orders: Orders Liver Panel Today B19.20 - Unspecified viral hepatitis C without hepatic coma, R10.11 - Right upper quadrant pain US abdomen complete Today B19.20 - Unspecified viral hepatitis C without hepatic coma, R10.11 - Right upper quadrant pain Prothrombin Time INR Today B19.20 - Unspecified viral hepatitis C without hepatic coma Complete Blood Count no Diff Today B19.20 - Unspecified viral hepatitis C without hepatic coma Medications: New sofosbuvir-velpatasvir 400-100 mg (Epclusa) 1 tab PO DAILY 84 tabs 0RF 12 weeks B19.20 - Unspecified viral hepatitis C without hepatic coma Coding Level of Care Code Tele Est Pt Level 4 (37095) Diagnoses Hepatitis C virus infection without hepatic coma, unspecified chronicity B19.20 Viral hepatitis chronicity: unspecified Hepatic coma status: without hepatic coma Gastro-esophageal reflux disease without esophagitis K21.9 Right upper quadrant abdominal pain R10.11
--- OUTSIDE RECORDS SUMMARY | 2025-03-18 12:55 | XMS_ITS | Continuity of Care Document ---
Author Organization [facility] [address] [place] [address] Phone [phone] Social History Type Date Description Comments Sex Female Sex Unknown Medical Devices Description No Information Available Encounters Description No Information Available Assessments Description No Information Available Plan of Treatment No Information Available Functional Status Description No Information Available Mental Status Description No Information Available Referrals Description No Information Available
--- OUTSIDE RECORDS SUMMARY | 2025-03-18 12:56 | XMS_ITS | Clinical Summary ---
Author Organization [facility] it Address [address] [place] [address] Care Team Providers Care Seat Cover Maker Name Role Phone Maki Foreman MD Primary [...] 08/14/2023 Social Influencers of Health Screening 08/14/2023 Depression Screening 07/16/2024 COVID-19 Vaccine (2023-2 5 season) 2025 Influenza Vaccine (#1) 2025 HIB Vaccines Aged [...] age to complete this topic Care Teams Seat Cover Maker Relationship Specialty Start Date End Date Maki Foreman MD [address] [place] [address] PCP - General 08/02/16
== END 2025-03-18 16:40 | disposition home or self-care (01) ==
LOC: HO.HGI 10:56
PROVIDERS: PCP Internal Medicine; Visit Provider Internal Medicine
DX: B19.20 Unspecified viral hepatitis C without hepatic coma (principal); K21.9 Gastro-esophageal reflux disease without esophagitis; R10.11 Right upper quadrant pain
CPT/HCPCS: 99214

== ENCOUNTER 2025-04-14 14:29 | Outpatient (AMB) | payer OTHER, SELFPAY ==
[2025-04-14 14:31] VITALS: BP 108/60; PULSE 81; TEMP 37.3; O2SAT 95; BMI 20.7
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
--- OUTSIDE RECORDS SUMMARY | 2025-04-14 15:55 | XMS_ITS | Continuity of Care Document ---
Author Organization [facility] [address] [place] [address] Phone [phone] Social History Type Date Description Comments Sex Female Sex Unknown Medical Devices Description No Information Available Encounters Description No Information Available Assessments Description No Information Available Plan of Treatment No Information Available Functional Status Description No Information Available Mental Status Description No Information Available Referrals Description No Information Available
--- OUTSIDE RECORDS SUMMARY | 2025-04-14 15:55 | XMS_ITS | Clinical Summary ---
Author Organization [facility] it Address [address] [place] [address] Care Team Providers Care Mechanical Test Engineer Name Role Phone Maki Foreman MD Primary [...] age to complete this topic Care Teams Mechanical Test Engineer Relationship Specialty Start Date End Date Maki Foreman MD [address] [place] [address] PCP - General 08/02/16
== END 2025-04-14 16:38 | disposition home or self-care (01) ==
PROVIDERS: PCP Internal Medicine; Visit Provider Physician Assistant Medical
DX: S42.201A Unspecified fracture of upper end of right humerus, initial encounter for closed fracture (principal); M79.601 Pain in right arm; M79.89 Other specified soft tissue disorders; T74.91XA Unspecified adult maltreatment, confirmed, initial encounter

== ENCOUNTER 2025-04-14 14:29 | Outpatient (REF) | payer OTHER, SELFPAY ==
--- NOTE | ~2025-04-14 | XR_ITS ---
EXAMINATION: XR HUMERUS, RIGHT CLINICAL INFORMATION: M79.601 - Pain in right arm COMPARISON: None available. TECHNIQUE: AP and lateral views of the right humerus. FINDINGS: There is an oblique fracture involving the medial metadiaphysis and surgical neck of the humerus with fragmentation of the greater tuberosity without displacement. No other fractures are identified. XR/XR humerus RT IMPRESSION: There is a fracture of the surgical neck of the humerus with longitudinal extension of fracture through the greater tuberosity and extension to the medial metadiaphysis. Electronically signed by: Corona Ramsay MD 04/14/2025 03:38 PM EDT
--- NOTE | ~2025-04-14 | XR_ITS ---
EXAMINATION: XR ELBOW 1-2 VIEWS RIGHT HISTORY: M79.601 - Pain in right arm COMPARISON: Comparison is made with the prior examination dated 09/29/2022. FINDINGS: AP and lateral views of the right elbow are submitted. Osseous mineralization is normal. There is no fracture or dislocation. The joint spaces are preserved. There is diffuse soft tissue swelling. XR/XR elbow RT 2V IMPRESSION: Diffuse soft tissue swelling. No evidence of fracture of the right elbow. Electronically signed by: Trent Aguirre MD 04/14/2025 03:39 PM EDT
--- NOTE | ~2025-04-14 | US_ITS ---
EXAMINATION: US TRIPLEX UPPER EXTREMITY, RIGHT CLINICAL INFORMATION: Swelling, bruising of right upper extremity. COMPARISON: None available. TECHNIQUE: Color-flow triplex imaging with spectral analysis and compression Doppler was performed on the right upper extremity. FINDINGS: The right internal jugular, subclavian, and axillary veins are patent and free of thrombus. The imaged segment of the right brachiocephalic vein is patent. Spectral doppler waveforms are normal. The brachial, basilic, cephalic, radial, and ulnar veins are patent and compressible. US/US venous duplex UE RT IMPRESSION: No evidence of deep venous thrombosis involving the right upper extremity. Electronically signed by: Kings Winters MD 04/14/2025 04:09 PM EDT
--- NOTE | ~2025-04-14 | XR_ITS ---
EXAMINATION: XR SHOULDER, RIGHT CLINICAL INFORMATION: M79.601 - Pain in right arm COMPARISON: September 29, 2022 TECHNIQUE: Two views of the right shoulder. FINDINGS: There is an oblique fracture through the surgical neck of the humerus with fragmentation of the greater tuberosity. There is no dislocation. AC joint is intact. XR/XR shoulder RT min 2V IMPRESSION: There is an acute oblique fracture involving the surgical neck of humerus extending to the medial metadiaphysis and involving the greater tuberosity. Electronically signed by: Corona Ramsay MD 04/14/2025 03:37 PM EDT
== END 2025-04-14 14:30 | disposition home or self-care (01) ==
LOC: HO.HMGCX 14:29
PROVIDERS: PCP Internal Medicine; Visit Provider Physician Assistant Medical
DX: S42.201A Unspecified fracture of upper end of right humerus, initial encounter for closed fracture (principal); T74.11XA Adult physical abuse, confirmed, initial encounter; Y04.2XXA Assault by strike against or bumped into by another person, initial encounter
CPT/HCPCS: 73030; 73060; 73070; 93971; 99212

== ENCOUNTER → 2025-04-14 15:11 | Outpatient (BNV) | payer OTHER, SELFPAY | PROVIDERS: PCP Internal Medicine; Visit Provider Radiology Diagnostic Radiology | DX: S42.201A Unspecified fracture of upper end of right humerus, initial encounter for closed fracture (principal); S42.211A Unspecified displaced fracture of surgical neck of right humerus, initial encounter for closed fracture; M79.89 Other specified soft tissue disorders | CPT/HCPCS: 73030; 73060; 73070; 93971 ==

== ENCOUNTER 2025-04-30 09:20 | Outpatient (REF) | payer OTHER, SELFPAY ==
--- OUTSIDE RECORDS SUMMARY | 2025-05-01 10:21 | XMS_ITS | Data Portability ---
Author Organization [facility] [address] Address [address] [place] [address] Assessment No assessment recorded. Plan of Treatment [...] Diagnosis SNOMED-CT Code Diagnosis ICD10 Code Diagnosis IMO Codes Diagnosis Note [id number] [address] [address] [place] [address] 03/09/2020 14:26:19 03/09/2020 16:36:18 [id number] [address] [facility] [facility] [place] [address] 12/31/2015 11:03:06 12/31/2015 12:48:18 Health Concerns Section Related Observation LastModified by Organization Detai ls LastModified Time None Recorded Concern Status LastModified by Organization Details LastModified Time None Recorded Advance Directives Directive None Recorded Payers Insurance Date Sequence Insurance Name Policy Number Policy Baez Covered Member ID Baez Member ID Guarantor Name 11/17/2022 1 [place]ICARE [place]: [employer] SERVICES Raul Ramos [id number] Raul Ramos 11/17/2022 2 [place] [facility] Raul Ramos [id number] 1 Raul Ramos OBGyn Episode No OBEpisode recorded.
== END 2025-04-30 09:21 | disposition home or self-care (01) ==
LOC: HO.HOSX 09:20
PROVIDERS: Visit Provider Physician Assistant
DX: Z13.89 Encounter for screening for other disorder (principal)

== ENCOUNTER 2025-05-07 08:19 | Outpatient (REF) | payer OTHER, SELFPAY | END 2025-05-07 08:20 | disposition home or self-care (01) | LOC: HO.HOSX 08:19 | PROVIDERS: Visit Provider Physician Assistant | DX: Z13.89 Encounter for screening for other disorder (principal) ==

== ENCOUNTER 2025-05-13 22:08 | Outpatient (REF) | payer OTHER, SELFPAY ==
--- OUTSIDE RECORDS SUMMARY | 2025-05-13 17:31 | XMS_ITS | Data Portability ---
Author Organization [facility] [address] Address [address] [place] [address] Assessment No assessment recorded. Plan of Treatment [...] ICD10 Code Diagnosis IMO Codes Diagnosis Note [id number] [address] [address] [place] [address] 03/09/2020 14:26:19 03/09/2020 16:36:18 [id number] [address] [facility] [place] [address] 12/31/2015 11:03:06 12/31/2015 12:48:18 Health Concerns Section Related Observation LastModified by Organization Detai ls LastModified Time None Recorded Concern Status LastModified by Organization Details LastModified Time None Recorded Advance Directives Directive None Recorded Payers Insurance Date Sequence Insurance Name Policy Number Policy Baez Covered Member ID Baez Member ID Guarantor Name 11/17/2022 1 [place] [employer] SERVICES Raul Ramos [id number] Raul Ramos 11/17/2022 2 [place] [facility] Raul Ramos [id number] 1 Raul Ramos OBGyn Episode No OBEpisode recorded.
--- OUTSIDE RECORDS SUMMARY | 2025-05-13 17:31 | XMS_ITS | Clinical Summary ---
Author Organization [facility] ity Address [address] [place] [address] Care Team Providers Care Software Team Leader Name Role Phone Maki Foreman MD Primary Care Provider [phone] Social History Tobacco Use Types Packs/Day Years Used Date Smoking Tobacco: Never Assessed Comments Unknown Sex and Gender Information Value Date Recorded Sex Assigned at Not on file Legal Sex Female 10:28 PM EST Gender Identity Not on file Sexual Orientation Not on file Plan of Treatment Health Maintenance Due Date Last Done Comments Breast Cancer Screening 1960 Colorectal Cancer Screening: Colonoscopy 1960 Hepatitis A Vaccines (1 of 2 - Risk 2-dose series) 1979 Cervical Cancer Screening: P ap Smear 1981 Pneumococcal Vaccine: 50+ Ye ars (1 of 1 - PCV) 2010 RSV Immunization Adult Patie nts (1 - Risk 50-74 years 1-dose series) 2010 Zoster Vaccines (1 of 2) 2010 Hepatitis B Vaccines (1 of 3 - Risk 3-dose series) 2020 DTaP,Tdap,and Td Vaccines (2 - Td or Tdap) 04/10/2021 04/10/2011 HIV Screening 08/14/2023 Hepatitis C Screening 08/14/2023 [...] age to complete this topic Care Teams Software Team Leader Relationship Specialty Start Date End Date Maki Foreman MD [address] [place] [address] PCP - General 08/02/16
--- OUTSIDE RECORDS SUMMARY | 2025-05-13 17:31 | XMS_ITS | Continuity of Care Document ---
Author Organization [facility] [address] [facility] [address] [address] [place] [address] Phone [phone] Social History Type Date Description Comments Sex Female Sex Unknown Medical Devices Description No Information Available Encounters Description No Information Available Assessments Description No Information Available Plan of Treatment No Information Available Functional Status Description No Information Available Mental Status Description No Information Available Referrals Description No Information Available
== END 2025-05-13 22:09 | disposition home or self-care (01) ==
LOC: HO.HOSX 22:08
PROVIDERS: Visit Provider Physician Assistant
DX: Z13.89 Encounter for screening for other disorder (principal)

== ENCOUNTER 2025-05-21 08:50 | Outpatient (REF) | payer OTHER, SELFPAY ==
--- NOTE | ~2025-05-21 | XR_ITS ---
EXAMINATION: XR SHOULDER, RIGHT CLINICAL INFORMATION: M25.511 - Pain in right shoulder COMPARISON: X-ray 04/14/2025 TECHNIQUE: Two views of the right shoulder. FINDINGS: Bone mineralization is decreased. Redemonstrated comminuted mildly displaced fracture of the humeral neck, greater tuberosity extending inferiorly into the proximal metadiaphysis.. Stable alignment. Mild callus formation/periosteal bone reaction. Glenohumeral articulation is maintained. Mild superior positioning of the distal clavicle with respect to the acromion could be related to positioning/technique versus injury. No new acute fracture seen. XR/XR shoulder RT min 2V IMPRESSION: Comminuted proximal humeral fracture, stable in alignment, with mild healing changes. Mild acromioclavicular joint malalignment. Electronically signed by: John Melendez MD 05/22/2025 07:28 AM DAVID
--- OUTSIDE RECORDS SUMMARY | 2025-05-22 09:34 | XMS_ITS | Clinical Summary ---
Author Organization [facility] ity Address [address] [place] [address] Care Team Providers Care It Business Systems Analyst Name Role Phone Maki Foreman MD Primary [...] age to complete this topic Care Teams It Business Systems Analyst Relationship Specialty Start Date End Date Maki Foreman MD [address] [place] [address] PCP - General 08/02/16
--- OUTSIDE RECORDS SUMMARY | 2025-05-22 09:34 | XMS_ITS | Continuity of Care Document ---
Author Organization [facility] [address] [place] [address] Phone [phone] Social History Type Date Description Comments Sex Female Sex Unknown Medical Devices Description No Information Available Encounters Description No Information Available Assessments Description No Information Available Plan of Treatment No Information Available Functional Status Description No Information Available Mental Status Description No Information Available Referrals Description No Information Available
== END 2025-05-21 08:51 | disposition home or self-care (01) ==
LOC: HO.HOSX 08:50
PROVIDERS: Visit Provider Physician Assistant
DX: S42.201A Unspecified fracture of upper end of right humerus, initial encounter for closed fracture (principal); Y02.8XXA Assault by pushing or placing victim in front of other moving object, initial encounter
CPT/HCPCS: 73030; 99212

== ENCOUNTER 2025-05-21 14:23 | Outpatient (AMB) | payer MEDICAID, SELFPAY ==
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
[2025-05-21 14:33] VITALS: BMI 20.7
--- OUTSIDE RECORDS SUMMARY | 2025-05-21 17:29 | XMS_ITS | Continuity of Care Document ---
Author Organization [facility] [address] [facility] [place] [address] Phone [phone] Social History Type Date Description Comments Sex Female Sex Unknown Medical Devices Description No Information Available Encounters Description No Information Available Assessments Description No Information Available Plan of Treatment No Information Available Functional Status Description No Information Available Mental Status Description No Information Available Referrals Description No Information Available
--- OUTSIDE RECORDS SUMMARY | 2025-05-21 17:30 | XMS_ITS | Data Portability ---
Author Organization [facility] [address] Address [address] [place] [address] Assessment No assessment recorded. Plan of Treatment [...] ICD10 Code Diagnosis IMO Codes Diagnosis Note [id number] [address] [address] [place] [address] 03/09/2020 14:26:19 03/09/2020 16:36:18 [id number] [address] [facility] [address] [place] [address] 12/31/2015 11:03:06 12/31/2015 12:48:18 Health Concerns Section Related Observation LastModified by Organization Detai ls LastModified Time None Recorded Concern Status LastModified by Organization Details LastModified Time None Recorded Advance Directives Directive None Recorded Payers Insurance Date Sequence Insurance Name Policy Number Policy Baez Covered Member ID Baez Member ID Guarantor Name 11/17/2022 1 [place]ARE [place] [employer] SERVICES Raul Ramos [id number] Raul Ramos 11/17/2022 2 [place] : [facility] Raul Ramos [id number] 1 Raul Ramos OBGyn Episode No OBEpisode recorded.
== END 2025-05-21 15:02 | disposition home or self-care (01) ==
PROVIDERS: Visit Provider Physician Assistant
DX: S42.201A Unspecified fracture of upper end of right humerus, initial encounter for closed fracture (principal)
CPT/HCPCS: 99213

== ENCOUNTER → 2025-05-21 14:25 | Outpatient (BNV) | payer OTHER, SELFPAY | PROVIDERS: Visit Provider Radiology Diagnostic Ultrasound | DX: S42.351D Displaced comminuted fracture of shaft of humerus, right arm, subsequent encounter for fracture with routine healing (principal) | CPT/HCPCS: 73030 ==